=== PATIENT | female | born 1985 | race African-American/Black ===

== ENCOUNTER 2016-10-20 23:32 | Emergency (ER) | payer SELFPAY ==
--- NOTE | 2016-10-21 01:36 | ER Document Report ---
ED Medical Screen (RME) - General Chief Complaint: Headache Stated Complaint: HEADACHE,SHORT OF BREATH Time seen by provider: 01:31 Mode of Arrival: Ambulatory Information source: Patient Notes: 31-year-old female presents to ED for shortness of breath chest pain and headache that started 3 days ago. She has a history of diabetes high blood pressure and kidney disease. She states her livestock farm workers switched one of her medicines on October 07. She states that her heart rate feels like it's beating really fast all the time and she is short of breath with pressure on her chest since the medicines were changed. I have greeted and performed a rapid initial assessment of this patient. A comprehensive ED assessment and evaluation of the patient, analysis of test results and completion of medical decision making process will be conducted by an additional ED providers. TRAVEL OUTSIDE OF THE [place] IN LAST 30 DAYS: No - Related Data Allergies/Adverse Reactions: varSartan Adverse Reaction (Uncoded 07/08/16 19:54) Past Medical History - Past Medical History Cardiac Medical History: Reports: Hx Hypercholesterolemia, Hx Hypertension Endocrine Medical History: Reports: Hx Diabetes Mellitus Type 1, Hx Diabetes Mellitus Type 2 Renal/ Medical History: Denies: Hx Peritoneal Dialysis Past Surgical History: Reports: Hx Section - Immunizations Hx Diphtheria, Pertussis, Tetanus Vaccination: Yes Physical Exam - Vital signs Vitals: Temp Pulse Resp BP 98.1 F 104 H 22 H 186/81 H 10/20/16 23:38 10/20/16 23:38 10/20/16 23:38 10/20/16 23:38 Course - Vital Signs Vital signs: Temp Pulse Resp BP Pulse Ox 98.1 F 104 H 22 H 186/81 H 10/20/16 23:38 10/20/16 23:38 10/20/16 23:38 10/20/16 23:38
[2016-10-21 03:24] LABS: ABSOLUTE EOSINOPHILS # (AUTO) 0.2 10^3/uL (0.0-0.6); ABSOLUTE LYMPHOCYTES (AUTO) 3.8 10^3/uL (0.5-4.7); ABSOLUTE MONOCYTES (AUTO) 0.6 10^3/uL (0.1-1.4); BASOPHILS % (AUTO) 0.2 % (0-2); EOSINOPHILS % (AUTO) 1.5 % (0-6); HEMATOCRIT 28.7 % (36.0-47.0); HEMOGLOBIN 9.6 g/dL (12.0-15.5); HGB HCT DIFFERENCE 0.1; LYMPHOCYTES % (AUTO) 30.3 % (13-45); MEAN CORPUSCULAR HGB CONC 33.6 g/dL (32.0-36.0); MEAN CORPUSCULAR VOLUME 86 fl (80-97); MONOCYTES % (AUTO) 5.1 % (3-13); RED BLOOD COUNT 3.32 10^6/uL (3.72-5.28); RED CELL DISTRIBUTION WIDTH 12.7 % (11.5-14.0); SEGMENTED NEUTROPHILS % (AUTO) 62.9 % (42-78); WHITE BLOOD COUNT 12.6 10^3/uL (4.0-10.5)
[2016-10-21 03:32] LABS: ALANINE AMINOTRANSFERASE 20 U/L (9-52); ALBUMIN 2.7 g/dL (3.5-5.0); ALKALINE PHOSPHATASE 136 U/L (38-126); ANION GAP 8 (5-19); ASPARTATE AMINO TRANSFERASE 21 U/L (14-36); BILIRUBIN,TOTAL 0.2 mg/dL (0.2-1.3); BLOOD UREA NITROGEN 36 mg/dL (7-20); CALCIUM 8.7 mg/dL (8.4-10.2); CARBON DIOXIDE 24 mmol/L (22-30); CHLORIDE 109 mmol/L (98-107); CREATINE KINASE 365 U/L (30-135); CREATININE RESULT 1.84 mg/dL (0.52-1.25); GLUCOSE 162 mg/dL (75-110); SODIUM 141.2 mmol/L (137-145)
[2016-10-21 03:39] LABS: APPEARANCE,URINE SLIGHTLY-CLOUDY; BILIRUBIN,URINE NEGATIVE (NEGATIVE); GLUCOSE, URINE 50 mg/dL (NEGATIVE); KETONES,URINE NEGATIVE (NEGATIVE); LEUKOCYTE ESTERASE,URINE LARGE (NEGATIVE); NITRITE,URINE NEGATIVE (NEGATIVE); PROTEIN,URINE >=500 mg/dL (NEGATIVE); UROBILINOGEN,URINE NEGATIVE mg/dL (<2.0)
[2016-10-21 03:42] LABS: CREATINE KINASE MB 2.49 ng/mL (<4.55); TROPONIN I 0.023 ng/mL
--- NOTE | 2016-10-21 05:10 | ER Document Report ---
ED General - General Chief Complaint: Headache Stated Complaint: HEADACHE,SHORT OF BREATH Time seen by provider: 05:07 Mode of Arrival: Ambulatory Information source: Patient Notes: 31-year-old female presents to ED for shortness of breath chest discomfort and headache that started 3 days ago. She has a history of diabetes high blood pressure and kidney disease. 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 She states that her heart has felt like it was racing and she has been short of breath with some pressure in her chest since the medicine was changed. TRAVEL OUTSIDE OF THE [place] IN LAST 30 DAYS: No - HPI Onset: Other - Headache and shortness of breath for 3 days she has had the racing heart and chest pressure with shortness of breath since October 07 Onset/Duration: Intermittent, Better Quality of pain: Pressure Severity: Moderate - She states the pressure is gone at this time Pain Level: 0 Associated symptoms: Nonproductive cough, Headache, Shortness of breath Exacerbated by: Coughing Relieved by: Denies Similar symptoms previously: Yes Recently seen / treated by doctor: No - Related Data Allergies/Adverse Reactions: varSartan Adverse Reaction (Uncoded 07/08/16 19:54) Past Medical History - General Information source: Patient - Social History Smoking Status: Never Smoker Cigarette use (# per day): No Chew tobacco use (# tins/day): No Smoking Education Provided: No Frequency of alcohol use: None Drug Abuse: None Lives with: Family Family History: Reviewed & Not Pertinent Patient has suicidal ideation: No Patient has homicidal ideation: No - Past Medical History Cardiac Medical History: Reports: Hx Hypercholesterolemia, Hx Hypertension Pulmonary Medical History: Reports: None EENT Medical History: Reports: None Neurological Medical History: Reports: None Endocrine Medical History: Reports: Hx Diabetes Mellitus Type 2 Renal/ Medical History: Reports: Other - Renal disease Malignancy Medical History: Reports: None GI Medical History: Reports: None Musculoskeltal Medical History: Reports None Skin Medical History: Reports None Psychiatric Medical History: Reports: None Traumatic Medical History: Reports: None Infectious Medical History: Reports: None Past Surgical History: Reports: Hx Section - Immunizations Immunizations up to date: Yes Hx Diphtheria, Pertussis, Tetanus Vaccination: Yes Hx Pneumococcal Vaccination: 06/13/14 Review of Systems - Review of Systems Constitutional: No symptoms reported EENT: No symptoms reported Cardiovascular: Chest pain Respiratory: Short of breath Gastrointestinal: No symptoms reported Genitourinary: No symptoms reported Female Genitourinary: No symptoms reported Musculoskeletal: No symptoms reported Skin: No symptoms reported Hematologic/Lymphatic: No symptoms reported Neurological/Psychological: No symptoms reported -: Yes All other systems reviewed and negative Physical Exam - Vital signs Vitals: Temp Pulse Resp BP Pulse Ox 98.1 F 112 H 20 186/81 H 100 10/20/16 23:37 10/20/16 23:37 10/20/16 23:37 10/20/16 23:37 10/20/16 23:37 Interpretation: Hypertensive, Tachycardic - Heart rate is 90 after given her a warm blanket - General General appearance: Appears well, Alert - HEENT Head: Normocephalic, Atraumatic Eyes: Normal Pupils: PERRL - Respiratory Respiratory status: No respiratory distress Chest status: Nontender. No: Tender Breath sounds: Normal. No: Rales, Rhonchi, Stridor, Wheezing Chest palpation: Normal - Cardiovascular Rhythm: Regular Heart sounds: Normal auscultation Murmur: No - Abdominal Inspection: Normal Distension: No distension Bowel sounds: Normal Tenderness: Nontender Organomegaly: No organomegaly - Back Back: Normal, Nontender - Extremities General upper extremity: Normal inspection, Nontender, Normal color, Normal ROM , Normal temperature General lower extremity: Normal inspection, Nontender, Normal color, Normal ROM , Normal temperature, Normal weight bearing. No: Nancy's sign - Neurological Neuro grossly intact: Yes Cognition: Normal Orientation: AAOx4 Yale Coma Scale Eye Opening: Spontaneous Yale Coma Scale Verbal: Oriented Junior Coma Scale Motor: Obeys Commands Junior Coma Scale Total: 15 Speech: Normal Motor strength normal: LUE, RUE, LLE, RLE Sensory: Normal - Psychological Associated symptoms: Normal affect, Normal mood - Skin Skin Temperature: Warm Skin Moisture: Dry Skin Color: Normal Course - Re-evaluation Re-evalutation: 10/21/16 05:[address] Barragan concerning lab values and assessment. Lab values are not a lot different than the last time she was here. Patient states that her symptoms that she was having earlier have resolved she no longer has any headache, chest pain, or shortness of breath. Patient was instructed to follow- up with her drywall taper helper by telephone today to schedule a follow-up appointment. A copy of her labs were given to her for follow-up with her drywall taper helper. Patient has a UTI will be treated with Macrobid I dose given in the ED and prescription given. Patient instructed to follow-up with her primary doctor for a repeat urine in 7-10 days. - Vital Signs Vital signs: Temp Pulse Resp BP Pulse Ox 98.0 F 106 H 18 137/93 H 100 10/21/16 05:40 10/21/16 05:40 10/21/16 05:40 10/21/16 05:40 10/21/16 05:40 - Laboratory Result Diagrams: 10/21/16 03:03 10/21/16 03:03 Laboratory results interpreted by me: 10/21/16 10/21/16 10/21/16 03:03 03:03 03:24 WBC 12.6 H RBC 3.32 L Hgb 9.6 L Hct 28.7 L Chloride 109 H BUN 36 H Creatinine 1.84 H Est GFR ( Amer) 39 L Est GFR (Non-Af Amer) 32 L Glucose 162 H Alkaline Phosphatase 136 H Creatine Kinase 365 H Total Protein 6.0 L Albumin 2.7 L Urine Protein >=500 H Urine Glucose (UA) 50 H Ur Leukocyte Esterase LARGE H Urine Ascorbic Acid 40 H - Diagnostic Test Radiology reviewed: Image reviewed, Reports reviewed Discharge - Discharge Clinical Impression: UTI (urinary tract infection) Qualifiers: Urinary tract infection type: site unspecified Hematuria presence: without hematuria Qualified Code(s): N39.0 - Urinary tract infection, site not specified Headache Qualifiers: Headache type: unspecified Headache chronicity pattern: unspecified pattern Intractability: not intractable Qualified Code(s): R51 - Headache Condition: Stable Disposition: HOME, SELF-CARE Additional Instructions: CHEST PAIN OF UNCLEAR CAUSE: The exact cause of your chest pain isn't clear. Fortunately, there is no evidence of a dangerous medical condition. Further testing may be required to find the source of the pain. Most often, we find that this pain is coming from the chest wall -- the muscles or rib joints in the chest. But chest pain can come from the lung and lung lining, the esophagus, the heart valves or heart lining, and even the stomach or gallbladder. Rest. Eat lightly until the pain is gone. We may prescribe medicine for pain and inflammation. You should call the physician immediately if the pain radiates to the shoulder, jaw or arms; if you start to run a fever or develop a cough; or if you develop shortness of breath, or other new or alarming symptoms. Headache The physician does not feel that the headache you are experiencing has a serious underlying cause. Most headaches are due to emotional stress, with resultant muscle tension (tension headache). Occasionally, headaches are secondary to changes in the blood vessels of the scalp (vascular headache and migraine headache). Sometimes, a headache is the first symptom of another developing illness, such as a viral infection. You have no evidence of stroke, bleeding, meningitis, or other serious cause of your headache. The treatment of headaches varies with the severity and cause of the pain. Not all headaches need pain shots. In fact, there is evidence that using narcotics for headaches may make them worse in the long run. The physician will determine the therapy that's in your best interest. If you develop a fever, if the headache is different from any you've previously experienced, or if the headache progressively worsens, then call your physician at once or go to the emergency room. URINARY TRACT INFECTION: Your evaluation indicates that you have a urinary tract infection. This is due to germs growing in the bladder. This is a common problem. This infection usually responds quickly to antibiotics. Your antibiotic should be taken exactly as prescribed. Drink plenty of fluids -- three to four quarts a day. Occasionally, a bladder anesthetic will be prescribed to help stop the feeling of urgency until the antibiotic has a chance to clear the infection. This may cause your urine to be dark orange. Certain urine infections require a culture. If the doctor obtained a culture, the results will be back in two days. You should call to see if a change in treatment is needed. A repeat urinalysis after you finish treatment is often recommended. The physician will let you know if further testing is required. Call the doctor if you develop fever, chills, flank pain, inability to urinate, or blood in the urine. NITROFURANTOIN (MACRODANTIN, MACROBID): You have received a prescription for nitrofurantoin (Macrodantin). This antibiotic is used for urinary tract infections. Women who are or nursing should notify the physician before taking this medicine. If you have ever had a problem caused by this medication in the past, be sure the physician is aware of it. Common side effects of this medicine include nausea, vomiting, or decreased appetite. Notify your physician if these side effects become severe. Immediately stop this medicine and call the physician if you develop cough , shortness of breath, chest pain, weakness, jaundice (yellow color of the skin and whites of the eyes), or a skin rash. Acetaminophen Acetaminophen may be taken for pain relief or fever control. It's much safer than aspirin, offering a wider range of "safe" dosages. It is safe during . Some brand names are Tylenol, Panadol, Datril, Anacin 3, Tempra, and Liquiprin. Acetaminophen can be repeated every four hours. The following are maximum recommended dosages: WEIGHT Dose Drops Elixir Chewable( 80mg) (LBS.) drprs=droppers tsp=teaspoon 6 40 mg .4 ml (1/2) 6-11 80 mg .8 ml (full) 1/2 tsp 1 tab 12-16 120 mg 1 1/2 drprs 3/4 tsp 1 1/2 tabs 17-23 160 mg 2 drprs 1 tsp 2 tabs 24-30 240 mg 3 drprs 1 1/2 tsp 3 tabs 30-35 320 mg 2 tsp 4 tabs 36-41 360 mg 2 1/4 tsp 4 1 /2 tabs 42-47 400 mg 2 1/2 tsp 5 tabs 48-53 480 mg 3 tsp 6 tabs 54-59 520 mg 3 1/4 tsp 6 1 /2 tabs 60-64 560 mg 3 1/2 tsp 7 tabs 65-70 600 mg 3 3/4 tsp 7 1 /2 tabs 71-76 640 mg 4 tsp 8 tabs 77-82 720 mg 4 1/2 tsp 9 tabs 83-88 800 mg 5 tsp 10 tabs >89 pounds or adults 650 mg to 900 mg Acetaminophen can be repeated every four hours. Maximum daily dose not to exceed 4000 mg. These maximum recommended dosages are slightly higher than the dosages written on the product container, but these dosages are very safe and well below the toxic dosage for acetaminophen. Please call your drywall taper helper today and schedule a follow-up appointment. You will be treated with Macrobid for your UTI. Please follow-up with your primary doctor for a repeat urine in 7 days. FOLLOW-UP CARE: If you have been referred to a physician for follow-up care, call the physician s office for an appointment as you were instructed or within the next two days. If you experience worsening or a significant change in your symptoms, notify the physician immediately or return to the Emergency Department at any time for re-evaluation. Prescriptions: Nitrofurantoin/Nitrofuran Mac [Macrobid 100 mg Capsule] 1 tab PO BID #14 capsule Forms: Elevated Blood Pressure Referrals: YAMILE LAURA PA-C [Primary Care Provider] - Follow up as needed
[2016-10-21] MEDS ORDERED: NITROFURANTOIN MONOHYD/M-CRYST 100 MG CAPSULE PO ONE (05:56)
[2016-10-21 07:11] VITALS: BP 157/88
--- NOTE | 2016-10-21 08:07 | EKG REPORT ---
SEVERITY:- NORMAL ECG - SINUS RHYTHM : Confirmed by: Pro Barclay MD 21-Oct-2016 08:07:07
== END 2016-10-21 06:17 | disposition home or self-care (01) ==
LOC: ER 23:32
DX: N39.0 Urinary tract infection, site not specified (principal); R51 Headache; R06.02 Shortness of breath; E11.9 Type 2 diabetes mellitus without complications; I10 Essential (primary) hypertension
CPT/HCPCS: 93005; 99285; 36415; 87086; 82553; 82550; 84703; 85025; 87088; 80053; 81001; 84484; 71020; 93010; J8499

== ENCOUNTER 2016-12-30 11:47 | Inpatient (IN) | payer MEDICAID ==
--- NOTE | 2016-12-30 12:17 | ER Document Report ---
ED Medical Screen (RME) - General Chief Complaint: Leg Swelling Stated Complaint: WEAKNESS/DIZZINESS Notes: Patient is here saying that she is having swelling of both legs starting yesterday. She has a history of similar problems in the past. Says that she is stage III renal failure. 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 Patient awakened this morning and felt lightheaded and dizzy and felt as if her heart was racing. Denies any chest pain. Feels short of breath and some difficulty breathing, however. PMH: Hypertension, IDDM, CRF TRAVEL OUTSIDE OF THE [place] IN LAST 30 DAYS: No - Related Data Allergies/Adverse Reactions: varSartan Adverse Reaction (Uncoded 12/30/16 11:49) Past Medical History - Past Medical History Cardiac Medical History: Reports: Hx Hypercholesterolemia, Hx Hypertension Endocrine Medical History: Reports: Hx Diabetes Mellitus Type 1, Hx Diabetes Mellitus Type 2 Renal/ Medical History: Denies: Hx Peritoneal Dialysis Past Surgical History: Reports: Hx Section - Immunizations Immunizations up to date: Yes Hx Diphtheria, Pertussis, Tetanus Vaccination: Yes Physical Exam - Vital signs Vitals: Temp Pulse Resp BP Pulse Ox 98.2 F 126 H 20 158/79 H 99 12/30/16 11:52 12/30/16 11:52 12/30/16 11:52 12/30/16 11:52 12/30/16 11:52 Course - Vital Signs Vital signs: Temp Pulse Resp BP Pulse Ox 98.2 F 126 H 20 158/79 H 99 12/30/16 11:52 12/30/16 11:52 12/30/16 11:52 12/30/16 11:52 12/30/16 11:52
--- NOTE | 2016-12-30 12:50 | ER Document Report ---
ED General - General Chief Complaint: Leg Swelling Stated Complaint: WEAKNESS/DIZZINESS Mode of Arrival: Ambulatory Information source: Patient Notes: 31-year-old female stage III chronic kidney disease presents with complaints of sob, bilateral foot swelling. Pt admits symptoms worsened since yesterday, pt on lasix, noted to have worsening renal function per manager resort. TRAVEL OUTSIDE OF THE [place] IN LAST 30 DAYS: No - HPI Onset: Yesterday Onset/Duration: Persistent, Worse Quality of pain: No pain Severity: Moderate Pain Level: Denies Associated symptoms: Leg swelling, Shortness of breath Exacerbated by: Supine Relieved by: Denies Similar symptoms previously: Yes Recently seen / treated by doctor: Yes - Related Data Allergies/Adverse Reactions: varSartan Adverse Reaction (Uncoded 12/30/16 11:49) Past Medical History - Social History Smoking Status: Never Smoker Cigarette use (# per day): No Chew tobacco use (# tins/day): No Smoking Education Provided: No Family History: Reviewed & Not Pertinent Patient has suicidal ideation: No Patient has homicidal ideation: No - Past Medical History Cardiac Medical History: Reports: Hx Hypercholesterolemia, Hx Hypertension Endocrine Medical History: Reports: Hx Diabetes Mellitus Type 1, Hx Diabetes Mellitus Type 2 Renal/ Medical History: Denies: Hx Peritoneal Dialysis Past Surgical History: Reports: Hx Section - Immunizations Immunizations up to date: Yes Hx Diphtheria, Pertussis, Tetanus Vaccination: Yes Hx Pneumococcal Vaccination: 06/13/14 Review of Systems - Review of Systems Notes: REVIEW OF SYSTEMS: CONSTITUTIONAL : Denies fever, chills, or sweats. Denies recent illness. EENT: Denies eye, ear, throat, or mouth pain or symptoms. Denies nasal or sinus congestion or discharge. Denies throat, tongue, or mouth swelling or difficulty swallowing. CARDIOVASCULAR: Denies chest pain. Denies palpitations or racing or irregular heart beat. Denies ankle edema. RESPIRATORY: admits to sob GASTROINTESTINAL: Denies abdominal pain or distention. Denies nausea, vomiting , or diarrhea. Denies blood in vomitus, stools, or per rectum. Denies black, tarry stools. Denies constipation. GENITOURINARY: Denies difficulty urinating, painful urination, burning, frequency, blood in urine, or discharge. FEMALE GENITOURINARY: Denies vaginal bleeding, heavy or abnormal periods, irregular periods. Denies vaginal discharge or odor. MUSCULOSKELETAL: admits to lwoer extremity sob SKIN: Denies rash, lesions or sores. HEMATOLOGIC : Denies easy bruising or bleeding. LYMPHATIC: Denies swollen, enlarged glands. NEUROLOGICAL: Denies confusion or altered mental status. Denies passing out or loss of consciousness. Denies dizziness or lightheadedness. Denies headache. Denies weakness or paralysis or loss of use of either side. Denies problems with gait or speech. Denies sensory loss, numbness, or tingling. Denies seizures. PSYCHIATRIC: Denies anxiety or stress. Denies depression, suicidal ideation, or homicidal ideation. ALL OTHER SYSTEMS REVIEWED AND NEGATIVE. Dictation was performed using [employer] voice recognition software PHYSICAL EXAMINATION: GENERAL: Well-appearing, well-nourished and in no acute distress. HEAD: Atraumatic, normocephalic. EYES: Pupils equal round and reactive to light, extraocular movements intact, conjunctiva are normal. ENT: Nares patent, oropharynx clear without exudates. Moist mucous membranes. NECK: Normal range of motion, supple without lymphadenopathy LUNGS: rhonchi at bases HEART: tachycardic ABDOMEN: Soft, nontender, nondistended abdomen. No guarding, no rebound. No masses appreciated. Female : deferred Musculoskeletal: peripheral edema NEUROLOGICAL: Cranial nerves grossly intact. Normal speech, normal gait. Normal sensory, motor exams PSYCH: Normal mood, normal affect. SKIN: Warm, Dry, normal turgor, no rashes or lesions noted. Physical Exam - Vital signs Vitals: Temp Pulse Resp BP Pulse Ox 98.2 F 126 H 20 158/79 H 99 12/30/16 11:52 12/30/16 11:52 12/30/16 11:52 12/30/16 11:52 12/30/16 11:52 Course - Re-evaluation Re-evalutation: 12/30/16 12:53 pt has probably chf exacerbation with electrolyte imbalance. 12/30/16 15:05 CT noted no significant abnormality, lab work noted worsening renal function, patient will be admitted to hospitalist service for her tachycardia and shortness of breath - Vital Signs Vital signs: Temp Pulse Resp BP Pulse Ox 98.8 F 126 H 18 143/85 H 98 12/30/16 13:01 12/30/16 11:52 12/30/16 13:01 12/30/16 13:01 12/30/16 13:01 - Laboratory Result Diagrams: 12/30/16 12:45 12/30/16 12:45 Laboratory results interpreted by me: 12/30/16 12/30/16 12/30/16 12:45 12:45 12:45 WBC 14.3 H RBC 3.13 L Hgb 9.0 L Hct 26.6 L Absolute Neutrophils 10.5 H Chloride 109 H BUN 24 H Creatinine 2.50 H Est GFR ( Amer) 27 L Est GFR (Non-Af Amer) 22 L Alkaline Phosphatase 134 H Creatine Kinase 554 H NT-Pro-B Natriuret Pep 411 H Total Protein 5.2 L Albumin 2.5 L - Diagnostic Test Radiology reviewed: Image reviewed, Reports reviewed Discharge - Discharge Clinical Impression: Tachycardia, Shortness of breath Hypertension Qualifiers: Hypertension type: essential hypertension Qualified Code(s): I10 - Essential ( primary) hypertension Condition: Stable Disposition: ADMITTED OBSERVATION Admitting Provider: Hospitalist Unit Admitted: Telemetry
[2016-12-30 12:58] LABS: ABSOLUTE EOSINOPHILS # (AUTO) 0.1 10^3/uL (0.0-0.6); ABSOLUTE MONOCYTES (AUTO) 0.6 10^3/uL (0.1-1.4); ABSOLUTE NEUT (AUTO) 10.5 10^3/uL (1.7-8.2); BASOPHILS % (AUTO) 0.3 % (0-2); HEMATOCRIT 26.6 % (36.0-47.0); HGB HCT DIFFERENCE 0.4; LYMPHOCYTES % (AUTO) 20.8 % (13-45); MEAN CORPUSCULAR HEMOGLOBIN 28.8 pg (27.0-33.4); MEAN CORPUSCULAR VOLUME 85 fl (80-97); MONOCYTES % (AUTO) 4.3 % (3-13); RED BLOOD COUNT 3.13 10^6/uL (3.72-5.28); RED CELL DISTRIBUTION WIDTH 12.8 % (11.5-14.0); SEGMENTED NEUTROPHILS % (AUTO) 73.6 % (42-78); WHITE BLOOD COUNT 14.3 10^3/uL (4.0-10.5)
[2016-12-30 13:16] LABS: ALANINE AMINOTRANSFERASE 28 U/L (9-52); ALBUMIN 2.5 g/dL (3.5-5.0); ALKALINE PHOSPHATASE 134 U/L (38-126); ANION GAP 8 (5-19); ASPARTATE AMINO TRANSFERASE 28 U/L (14-36); BILIRUBIN,TOTAL 0.2 mg/dL (0.2-1.3); BLOOD UREA NITROGEN 24 mg/dL (7-20); CALCIUM 8.5 mg/dL (8.4-10.2); CARBON DIOXIDE 23 mmol/L (22-30); CHLORIDE 109 mmol/L (98-107); CREATINE KINASE 554 U/L (30-135); GLUCOSE 103 mg/dL (75-110); SODIUM 140.1 mmol/L (137-145); TOTAL PROTEIN 5.2 g/dL (6.3-8.2)
[2016-12-30 13:27] LABS: CREATINE KINASE MB 3.87 ng/mL (<4.55); TROPONIN I 0.013 ng/mL
[2016-12-30] MEDS ORDERED: IPRATROPIUM/ALBUTEROL 0.5-2.5 MG/3 ML AMPUL NEB PRN (16:51)
[2016-12-30] MEDS ORDERED: ACETAMINOPHEN 325 MG TABLET PO PRN (16:57)
[2016-12-30] MEDS ORDERED: LABETALOL HCL INJ 20 MG/4 ML DISP.SYRIN IV PRN (17:05)
[2016-12-30] MEDS ORDERED: GLUCAGON,HUMAN RECOMB 1 MG INJ IM PRN (17:45)
[2016-12-30] MEDS ORDERED: DEXTROSE 40% GEL 15 GM TUBE PO PRN ×2 (17:45)
[2016-12-30] MEDS ORDERED: DEXTROSE 50%-WATER 25 GM/50 ML DISP.SYRIN IV PRN ×2 (17:45)
[2016-12-30] MEDS ORDERED: GABAPENTIN 300 MG CAPSULE PO PRN (18:14)
[2016-12-30] MEDS ORDERED: ENOXAPARIN SODIUM INJ 40 MG/0.4 ML DISP.SYRIN SUBCUT ONE (18:30)
[2016-12-30 19:06] LABS: APPEARANCE,URINE CLOUDY; BILIRUBIN,URINE NEGATIVE (NEGATIVE); GLUCOSE, URINE >=500 mg/dL (NEGATIVE); KETONES,URINE NEGATIVE (NEGATIVE); LEUKOCYTE ESTERASE,URINE MODERATE (NEGATIVE); NITRITE,URINE NEGATIVE (NEGATIVE); PROTEIN,URINE >=500 mg/dL (NEGATIVE); URINE SPECIFIC GRAVITY 1.009; UROBILINOGEN,URINE NEGATIVE mg/dL (<2.0)
[2016-12-30 19:54] LABS: URINE CREATININE 80.8 mg/dL (16-327)
--- NOTE | 2016-12-30 20:06 | EKG REPORT ---
SEVERITY:- BORDERLINE ECG - SINUS TACHYCARDIA INFERIOR Q WAVES, PROBABLY NORMAL VARIATION BORDERLINE T ABNORMALITIES, DIFFUSE LEADS : Confirmed by: Maritza Miller MD 30-Dec-2016 20:06:06
[2016-12-30] MEDS: BUPROPION HCL 100 MG TABLET PO SCH (22:11)
[2016-12-30] MEDS: FUROSEMIDE INJ/PF 20 MG/2 ML SDV IV SCH (22:11)
[2016-12-30] MEDS: INSULIN REG, HUMAN 100 UNIT/ML 3 ML VIAL (PYX) SUBCUT PRN (22:11)
[2016-12-31 04:25] LABS: ABSOLUTE BASOPHILS # (AUTO) 0.1 10^3/uL (0.0-0.2); ABSOLUTE EOSINOPHILS # (AUTO) 0.2 10^3/uL (0.0-0.6); ABSOLUTE LYMPHOCYTES (AUTO) 3.8 10^3/uL (0.5-4.7); ABSOLUTE MONOCYTES (AUTO) 0.6 10^3/uL (0.1-1.4); ABSOLUTE NEUT (AUTO) 8.7 10^3/uL (1.7-8.2); BASOPHILS % (AUTO) 0.4 % (0-2); EOSINOPHILS % (AUTO) 1.2 % (0-6); HEMATOCRIT 24.9 % (36.0-47.0); HEMOGLOBIN 8.4 g/dL (12.0-15.5); HGB HCT DIFFERENCE 0.3; LYMPHOCYTES % (AUTO) 28.2 % (13-45); MEAN CORPUSCULAR HEMOGLOBIN 28.7 pg (27.0-33.4); MEAN CORPUSCULAR HGB CONC 33.9 g/dL (32.0-36.0); MEAN CORPUSCULAR VOLUME 85 fl (80-97); MONOCYTES % (AUTO) 4.7 % (3-13); RED BLOOD COUNT 2.94 10^6/uL (3.72-5.28); RED CELL DISTRIBUTION WIDTH 12.8 % (11.5-14.0); SEGMENTED NEUTROPHILS % (AUTO) 65.5 % (42-78); WHITE BLOOD COUNT 13.3 10^3/uL (4.0-10.5)
[2016-12-31 04:42] LABS: ALANINE AMINOTRANSFERASE 23 U/L (9-52); ALBUMIN 2.2 g/dL (3.5-5.0); ALKALINE PHOSPHATASE 119 U/L (38-126); ANION GAP 5 (5-19); ASPARTATE AMINO TRANSFERASE 24 U/L (14-36); BILIRUBIN,TOTAL 0.3 mg/dL (0.2-1.3); BLOOD UREA NITROGEN 25 mg/dL (7-20); CALCIUM 8.3 mg/dL (8.4-10.2); CARBON DIOXIDE 25 mmol/L (22-30); CHLORIDE 111 mmol/L (98-107); CREATINE KINASE 374 U/L (30-135); CREATININE RESULT 2.45 mg/dL (0.52-1.25); GLUCOSE 184 mg/dL (75-110); MAGNESIUM 2.2 mg/dL (1.6-2.3); POTASSIUM 4.1 mmol/L (3.6-5.0); SODIUM 140.9 mmol/L (137-145); TOTAL PROTEIN 4.7 g/dL (6.3-8.2)
[2016-12-31 04:56] LABS: FREE T3 4.94 pg/mL (2.77-5.27)
[2016-12-31 05:09] LABS: THYROID STIMULATING HORMONE 3.45 uIU/mL (0.47-4.68)
[2016-12-31] MEDS: BUPROPION HCL 100 MG TABLET PO SCH ×3 (06:20→20:05)
--- NOTE | 2016-12-31 07:46 | PDOC H&P ---
History of Present Illness Admission Date/PCP: 12/30/16 16:52 YAMILE LAURA PA-C, with [facility] Patient complains of: Swelling and shortness of breath History of Present Illness: KAYLIE RODRIGUEZ is a 31 year old -Ch[place]an female with a past medical history significant for CK D stage III with a baseline creatinine around 1.8, dyslipidemia, hypertension who presents to the service with complaints of shortness of breath and lower extremity swelling. According to the patient her symptoms began 2 days ago when she started feeling short of breath. She noticed that her lower extremities seems larger than usual. In addition to this she noticed that her abdomen has also gotten larger. She says she usually has a bit of a tummy but never has looked as though she could be . She states she follows with a sales office administrator by the name of mack Mishra at [facility] and has been on several medications since establishing care. She doesn't feel that the medications are completely working. The patient is also a known diabetic. Her says that her blood sugars have been very uncontrolled as high as the upper 300s. Her last hemoglobin A1c was 10/07/2016 and was noted to be 7.5 according to her report. The patient also admits to having uncontrolled hypertension, But reports taking her medicine. She denies any orthopnea, PND, fevers, polyuria or polydipsia. In the emergency room the patient underwent a noncontrast CT of the chest which was negative. So underwent VQ scan which was negative. She did not receive any antihypertensives as her blood pressure came down on its own. Really it was 180/95 with a heart rate of 130. Repeat showed a blood pressure of 143/95 and a heart rate of 106. Her white blood cell count is noted to be elevated at 14.3 with a creatinine of 2.4. Again her baseline is around 1.8. She was also noted to have an elevated CK and alkaline phosphatase. VBG was pending. At the bedside the patient was feeling a little bit better by the time I saw her. She complains of weakness and generalized feeling of being tired and she notes that she occasionally has chills and was supposed to have her thyroid checked. Past Medical History Cardiac Medical History: Reports: Hyperlipidema, Hypertension, Heart Murmur Endocrine Medical History: Reports: Diabetes Mellitus Type 1 - Complicated by peripheral neuropathy Renal/ Medical History: Reports: Chronic Kidney Disease - Stage III Psychiatric Medical History: Reports: Depression Past Surgical History Past Surgical History: Reports: Section Social History Information Source: Patient Smoking Status: Never Smoker Hx Recreational Drug Use: No Hx Prescription Drug Abuse: No Family History Family History: DM, Hypertension Parental Family History Reviewed: Yes Children Family History Reviewed: Yes Sibling(s) Family History Reviewed.: Yes Medication/Allergy Home Medications: Amlodipine/Valsartan [Amlodipine-Valsartan 10-320 mg] 1 tab PO DAILY 12/30/16 Atorvastatin Calcium [Lipitor 20 mg Tablet] 20 mg PO DAILY 12/30/16 Bupropion HCl [Wellbutrin Xl] 300 mg PO DAILY 12/30/16 Furosemide [Lasix] 60 mg PO DAILY 12/30/16 Gabapentin [Neurontin 300 mg Capsule] 300 mg PO HSP PRN 12/30/16 Hydralazine HCl [Apresoline 50 mg Tablet] 25 mg PO Q12 12/30/16 Insulin Aspart [Novolog Insulin (Aspart) 100 unit/mL] 0 units SQ AC PRN Insulin Glargine,Hum.rec.anlog [Lantus Insulin 100 Unit/1 ml 10 ml] 20 units SQ QAM 12/30/16 Terazosin HCl [Hytrin] 5 mg PO DAILY 12/30/16 Tramadol HCl [Ultram 50 mg Tablet] 50 mg PO DAILYP PRN 12/30/16 Allergies/Adverse Reactions: varSartan Adverse Reaction (Uncoded 12/30/16 11:49) Review of Systems Review of Systems: Review of systems is pertinent as already listed in the history of present illness in addition to this the patient admits to weight gain periodic dizziness and lightheadedness sweats generalized weakness cold intolerance she denies fevers chills nausea vomiting diarrhea constipation arthritic type pains chest pain abdominal pain weight loss polyuria polydipsia Physical Exam Vital Signs: Temp Pulse Resp BP Pulse Ox 98.1 F 126 H 17 162/101 H 99 12/30/16 16:40 12/30/16 11:52 12/30/16 17:01 12/30/16 17:00 12/30/16 17:01 PHYSICAL EXAM: GENERAL: This is a well-developed well-nourished -[place] female resting in no acute distress, but appearing tired. HEENT: Normocephalic atraumatic. Trachea is midline. Sclerae anicteric. No lymphadenopathy. Moist mucous membranes HEART: Regular rate and rhythm. 2/6 systolic murmurs. No rubs or gallops. LUNGS: Clear to auscultation bilaterally with equal rise and fall of the chest. ABDOMEN: Soft, nontender, moderately distended with normoactive bowel sounds EXTREMITIES: No clubbing cyanosis. 2+ pitting edema extending from the feet following up through the knees. 1+ peripheral pulses. Strength is 5 out of 5 NEURO: Awake, alert, oriented x3. Cranial nerves II through XII grossly intact. PSYCH: Normal affect. Results Impressions: Chest X-Ray 12/30/16 12:14 IMPRESSION: NO ACUTE RADIOGRAPHIC FINDING IN THE CHEST. Chest CT 12/30/16 13:44 IMPRESSION: NO SIGNIFICANT FINDING ON NON-CONTRASTED CHEST CT. Lung Scan-VQ NM 12/30/16 15:04 IMPRESSION: NORMAL VENTILATION-PERFUSION LUNG SCAN. NEGATIVE FOR PULMONARY EMBOLI. Assessment & Plan - Diagnosis (1) Acute on chronic renal failure Plan: Patient with acute on chronic renal failure she follows with outpatient nephrology. We will need to be cautious with diuresis and her. For now I'm going to hold her valsartan and and her HCTZ. BUNs only slightly elevated. I suspect that her new creatinine is a reflection of mild volume depletion at best and more so intrinsic renal disease (2) Hypertensive emergency without congestive heart failure Plan: Patient is written for when necessary labetalol IV. We will continue her amlodipine 10. I'm holding her valsartan and secondary to acute renal failure. If her blood pressure is not under better control we will need to add hydralazine by mouth and isosorbide. We'll continue to monitor (3) Dyslipidemia Plan: Continue atorvastatin (4) Depression Plan: Continue bupropion. Check TSH (5) Leukocytosis Plan: It is unclear to me why the patient has an elevated white count her CT and chest x-ray were each negative. She denies any dysuria. However we'll go ahead and check urinalysis. This could just be a stress reaction however she does have an elevated heart rate she is afebrile. For now I will not start any antibiotics until I have a source or she spikes a fever. We'll defer blood cultures the patient does not appear toxic whatsoever. (6) Shortness of breath Plan: I think the patient's shortness of breath is a reflection of her volume overload secondary to renal failure. Hopefully we can help her diurese we will need to be cautious with this considering her renal function. She likely is also mildly intravascularly volume depleted - Time Time Spent: Greater than 70 Minutes - Inpatient Certification Medical Necessity: Need Close Monitoring Due to Risk of Patient Decompensation
[2016-12-31] MEDS: ENOXAPARIN SODIUM INJ 40 MG/0.4 ML DISP.SYRIN SUBCUT SCH (08:32)
[2016-12-31] MEDS: INSULIN REG, HUMAN 100 UNIT/ML 3 ML VIAL (PYX) SUBCUT PRN ×4 (08:32→20:14)
[2016-12-31] MEDS: TRAMADOL HCL 50 MG TABLET PO PRN ×2 (08:35→20:05)
[2016-12-31] MEDS: INSULIN GLARGINE,HUM.REC.ANLOG 300 UNIT/3 ML INSULN.PEN SUBCUT SCH (09:51)
[2016-12-31] MEDS: AMLODIPINE BESYLATE 10 MG TABLET PO SCH (09:52)
[2016-12-31] MEDS: ATORVASTATIN CALCIUM 20 MG TABLET PO SCH (09:53)
[2016-12-31] MEDS: DOXAZOSIN MESYLATE 4 MG TABLET PO SCH (09:53)
[2016-12-31] MEDS: FUROSEMIDE INJ/PF 20 MG/2 ML SDV IV SCH ×2 (09:54→20:04)
[2016-12-31] MEDS ORDERED: (PENDING PHARMACY ID) (Terazosin Hcl [Hytrin] 5 MG) PO SCH (10:00)
[2016-12-31] MEDS ORDERED: BUPROPION HCL 100 MG TABLET PO SCH (10:00)
--- NOTE | 2016-12-31 13:18 | XCELERA REPORT ---
[address] [address] Transthoracic Echocardiogram Report Name: KAYLIE RODRIGUEZ Age: 31 yrs Gender: Female : 1985 Patient Status: Inpatient Patient Location: 5\S\534\S\A Study Date: 12/31/2016 10:47 AM Height: 66 in Weight: 182 lb BSA: 1.9 m2 Procedure: A complete two-dimensional transthoracic echocardiogram was performed (2D, M-mode, spectral and color flow Doppler). The study was technically difficult with many images being suboptimal in quality. Reason For Study: swelling and murmur Ordering Physician: KAMILLE NGUYEN Performed By: Fiordaliza Bose Interpretation Summary The study was technically difficult with many images being suboptimal in quality. The left ventricular ejection fraction is normal. There is mild concentric left ventricular hypertrophy. Doppler measurements suggest pseudonormalized left ventricular relaxation, which is associated with grade II/IV or mild to moderate diastolic dysfunction The left ventricle is grossly normal size. Wall motion cannot be accurately commented on, but no definite regional wall motion abnormalities noted. The right ventricular systolic function is normal. The left atrium is mildly dilated. The right atrium is normal in size There is a trace amount of mitral regurgitation There is no mitral valve stenosis. No aortic regurgitation is present. There is no aortic valve stenosis There is a trace or physiologic amount of tricuspid regurgitation Tricuspid regurgitation jet envelope not well defined to measure RV systolic pressure accurately. The pulmonic valve is not well visualized. The aortic root is not well visualized but is probably normal size. The inferior vena cava was not well visualized Minimal pericardial effusion. MMode/2D Measurements \T\ Calculations RVDd: 2.6 cm LVIDd: 4.4 cm FS: 33.5 % Ao root diam: 2.8 cm IVSd: 1.2 cm LVIDs: 2.9 cm EDV(Teich): 88.9 ml LVPWd: 1.1 cm ESV(Teich): 33.3 ml Ao root area: 6.0 cm2 EF(Teich): 62.5 % LA dimension: 3.7 cm Doppler Measurements \T\ Calculations MV E max denise: MV P1/2t max denise: Ao V2 max: LV V1 max P.9 cm/sec 106.9 cm/sec 182.4 cm/sec 6.8 mmHg MV A max denise: MV P1/2t: 77.0 msec Ao max PG: LV V1 max: 103.1 cm/sec 13.3 mmHg 130.5 cm/sec MV E/A: 1.0 MVA(P1/2t): 2.9 cm2 MV dec slope: 406.9 cm/sec2 PA V2 max: 121.7 cm/sec PA max P.9 mmHg Left Ventricle The left ventricle is grossly normal size. There is mild concentric left ventricular hypertrophy. The left ventricular ejection fraction is normal. Doppler measurements suggest pseudonormalized left ventricular relaxation, which is associated with grade II/IV or mild to moderate diastolic dysfunction. Wall motion cannot be accurately commented on, but no definite regional wall motion abnormalities noted. Right Ventricle The right ventricle is grossly normal size. There is normal right ventricular wall thickness. The right ventricular systolic function is normal. Atria The right atrium is normal in size. The left atrium is mildly dilated. Interarterial septum not well visualized and not well dopplered. Cannot comment on ASD/PFO presence. Mitral Valve The mitral valve leaflets are sclerotic, but show no functional abnormalities. There is no mitral valve stenosis. There is a trace amount of mitral regurgitation. Aortic Valve The aortic valve is grossly normal. There is no aortic valve stenosis. No aortic regurgitation is present. Tricuspid Valve The tricuspid valve is not well visualized secondary to technical limitations. There is no tricuspid stenosis. There is a trace or physiologic amount of tricuspid regurgitation. Tricuspid regurgitation jet envelope not well defined to measure RV systolic pressure accurately. Pulmonic Valve The pulmonic valve is not well visualized. Great Vessels The aortic root is not well visualized but is probably normal size. The inferior vena cava was not well visualized. Effusions Minimal pericardial effusion. : KAMILLE NGUYEN > Denice Decker
--- NOTE | 2016-12-31 16:37 | PDOC PROGRESS REPORT ---
Subjective Progress Note for:: 12/31/16 Subjective:: This is a follow-up visit for acute renal failure. Patient had no acute events overnight. She does however expressed concerns about her blood sugars and elevated blood pressures. I have spoken with the patient and her mother about each of these issues. Of also just desires to be transferred out to [facility]. At this point the patient wishes to remain here. Physical Exam Vital Signs: Temp Pulse Resp BP Pulse Ox 97.9 F 101 H 16 183/112 H 100 12/31/16 11:40 12/31/16 14:00 12/31/16 07:47 12/31/16 11:40 12/31/16 11:40 Intake & Output 12/30/16 12/31/16 01/01/17 06:59 06:59 06:59 Intake Total 345 700 Output Total 336 Balance 9 700 Weight 82.3 kg PHYSICAL EXAM: GENERAL: This is a well-developed well-nourished -[place]aur[place] female resting in no acute distress. HEART: Regular rate and rhythm. 2/6 murmurs. No rubs or gallops. LUNGS: Clear to auscultation bilaterally with equal rise and fall of the chest. ABDOMEN: Soft, nontender, slightly less distended with normoactive bowel sounds EXTREMITIES: No clubbing cyanosis. Down to 1+ edema. 1+ peripheral pulses. NEURO: Awake, alert, oriented x-3. Cranial nerves II through XII grossly intact. PSYCH: Normal affect. Results Laboratory Results: 12/31/16 04:15 12/31/16 04:15 12/30/16 12/31/16 12/31/16 18:26 04:15 04:15 WBC 13.3 H RBC 2.94 L Hgb 8.4 L Hct 24.9 L MCV 85 MCH 28.7 MCHC 33.9 RDW 12.8 Plt Count 265 Seg Neutrophils % 65.5 Lymphocytes % 28.2 Monocytes % 4.7 Eosinophils % 1.2 Basophils % 0.4 Absolute Neutrophils 8.7 H Absolute Lymphocytes 3.8 Absolute Monocytes 0.6 Absolute Eosinophils 0.2 Absolute Basophils 0.1 Sodium 140.9 Potassium 4.1 Chloride 111 H Carbon Dioxide 25 Anion Gap 5 BUN 25 H Creatinine 2.45 H Est GFR ( Amer) 28 L Est GFR (Non-Af Amer) 23 L Glucose 184 H Calcium 8.3 L Magnesium 2.2 Total Bilirubin 0.3 AST 24 ALT 23 Alkaline Phosphatase 119 Total Protein 4.7 L Albumin 2.2 L TSH Free T4 Free T3 pg/mL Urine Color YELLOW Urine Appearance CLOUDY Urine pH 5.0 Ur Specific [place] 1.009 Urine Protein >=500 H Urine Glucose (UA) >=500 H Urine Ketones NEGATIVE Urine Blood NEGATIVE Urine Nitrite NEGATIVE Ur Leukocyte Esterase MODERATE H Urine WBC (Auto) 58 Urine RBC (Auto) 46 12/31/16 04:15 WBC RBC Hgb Hct MCV MCH MCHC RDW Plt Count Seg Neutrophils % Lymphocytes % Monocytes % Eosinophils % Basophils % Absolute Neutrophils Absolute Lymphocytes Absolute Monocytes Absolute Eosinophils Absolute Basophils Sodium Potassium Chloride Carbon Dioxide Anion Gap BUN Creatinine Est GFR ( Amer) Est GFR (Non-Af Amer) Glucose Calcium Magnesium Total Bilirubin AST ALT Alkaline Phosphatase Total Protein Albumin TSH 3.45 Free T4 1.15 Free T3 pg/mL 4.94 Urine Color Urine Appearance Urine pH Ur Specific [place] Urine Protein Urine Glucose (UA) Urine Ketones Urine Blood Urine Nitrite Ur Leukocyte Esterase Urine WBC (Auto) Urine RBC (Auto) 12/31/16 12/31/16 04:15 04:15 Creatine Kinase 374 H NT-Pro-B Natriuret Pep 387 H Impressions: Chest X-Ray 12/30/16 12:14 IMPRESSION: NO ACUTE RADIOGRAPHIC FINDING IN THE CHEST. Chest CT 12/30/16 13:44 IMPRESSION: NO SIGNIFICANT FINDING ON NON-CONTRASTED CHEST CT. Lung Scan-VQ NM 12/30/16 15:04 IMPRESSION: NORMAL VENTILATION-PERFUSION LUNG SCAN. NEGATIVE FOR PULMONARY EMBOLI. Assessment & Plan - Diagnosis (1) Acute on chronic renal failure Plan: Patient with acute on chronic renal failure she follows with outpatient nephrology. We will need to be cautious with diuresing her. For now I'm going to hold her valsartan and and her HCTZ. Her kidney function is only slightly better today. Will consult nephrology to assist. The patient has started in contact with her performing artist at [facility] who have recommended to her that if she was dissatisfied she could be transferred there. At this point I do think it is unnecessary and we will of viral performing artist and to have her evaluated. The patient is comfortable with this option. (2) Hypertensive emergency without congestive heart failure Plan: Patient is written for when necessary labetalol IV. We will continue her amlodipine 10. I'm holding her valsartan secondary to acute renal failure. Patient has an allergy to valsartan but states that the allergy goes away with combined with amlodipine. We'll add low-dose metoprolol especially given her tachycardia. Echocardiogram was done which showed 2 out of 6 grade diastolic dysfunction. BNP was mildly elevated on admission (3) Dyslipidemia Plan: Continue atorvastatin (4) Depression Plan: Continue bupropion. Thyroid panel looks good (5) Leukocytosis Plan: It is unclear to me why the patient has an elevated white count. her CT and chest x-ray were each negative. She denies any dysuria. Urinalysis shows moderate leukocyte esterase With few epithelial cells. Urine cultures pending. Patient remains afebrile (6) Shortness of breath Plan: I think the patient's shortness of breath is a reflection of her volume overload secondary to renal failure and diastolic heart failure. Hopefully we can help her diurese we will need to be cautious with this considering her renal function. (7) Diabetes 1.5, managed as type 1 Plan: Continue Lantus daily. Continue current sliding scale insulin. Her full 24 hours his past albumin to determine exactly what the patient's needs are. We will need to increase her Lantus. Diabetic diet. Hemoglobin A1c is 9.9. - Time Time Spent with patient: 35 or more minutes - Time spent chart review, speaking to the patient's now former PCP, discussion with patient and her mother, patient exam - Inpatient Certification Medical Necessity: Significant Comorbidiites Make Outpatient Treatment Too Risky
[2016-12-31] MEDS: METOPROLOL TARTRATE 25 MG TABLET PO SCH (20:05)
[2017-01-01 04:04] LABS: ABSOLUTE EOSINOPHILS # (AUTO) 0.2 10^3/uL (0.0-0.6); ABSOLUTE LYMPHOCYTES (AUTO) 3.9 10^3/uL (0.5-4.7); ABSOLUTE MONOCYTES (AUTO) 0.8 10^3/uL (0.1-1.4); ABSOLUTE NEUT (AUTO) 10.4 10^3/uL (1.7-8.2); BASOPHILS % (AUTO) 0.3 % (0-2); EOSINOPHILS % (AUTO) 1.3 % (0-6); HEMATOCRIT 24.7 % (36.0-47.0); HEMOGLOBIN 8.1 g/dL (12.0-15.5); HGB HCT DIFFERENCE -0.4; LYMPHOCYTES % (AUTO) 25.2 % (13-45); MEAN CORPUSCULAR HEMOGLOBIN 28.1 pg (27.0-33.4); MEAN CORPUSCULAR HGB CONC 32.7 g/dL (32.0-36.0); MEAN CORPUSCULAR VOLUME 86 fl (80-97); MONOCYTES % (AUTO) 5.4 % (3-13); RED BLOOD COUNT 2.88 10^6/uL (3.72-5.28); RED CELL DISTRIBUTION WIDTH 12.7 % (11.5-14.0); SEGMENTED NEUTROPHILS % (AUTO) 67.8 % (42-78); WHITE BLOOD COUNT 15.3 10^3/uL (4.0-10.5)
[2017-01-01 04:05] LABS: VENOUS BLOOD BASE EXCESS -0.1 mmol/L; VENOUS BLOOD HCO3 25.4 mmol/L (20-32); VENOUS BLOOD PCO2 44.9 mmHg (35-63); VENOUS BLOOD PH 7.37 (7.30-7.42)
[2017-01-01 04:10] LABS: ANION GAP 6 (5-19); BLOOD UREA NITROGEN 33 mg/dL (7-20); CARBON DIOXIDE 25 mmol/L (22-30); CHLORIDE 110 mmol/L (98-107); CREATININE RESULT 2.68 mg/dL (0.52-1.25); GLUCOSE 137 mg/dL (75-110); MAGNESIUM 2.2 mg/dL (1.6-2.3); POTASSIUM 4.5 mmol/L (3.6-5.0); SODIUM 140.6 mmol/L (137-145)
[2017-01-01] MEDS: BUPROPION HCL 100 MG TABLET PO SCH ×3 (05:50→22:48)
[2017-01-01] MEDS: ENOXAPARIN SODIUM INJ 40 MG/0.4 ML DISP.SYRIN SUBCUT SCH (08:16)
[2017-01-01] MEDS: INSULIN REG, HUMAN 100 UNIT/ML 3 ML VIAL (PYX) SUBCUT PRN ×3 (08:16→22:56)
[2017-01-01] MEDS: INSULIN GLARGINE,HUM.REC.ANLOG 300 UNIT/3 ML INSULN.PEN SUBCUT SCH (09:44)
[2017-01-01] MEDS: METOPROLOL TARTRATE 25 MG TABLET PO SCH ×2 (09:47→22:48)
[2017-01-01] MEDS: DOXAZOSIN MESYLATE 4 MG TABLET PO SCH (09:48)
[2017-01-01] MEDS: AMLODIPINE BESYLATE 10 MG TABLET PO SCH (09:48)
[2017-01-01] MEDS: ATORVASTATIN CALCIUM 20 MG TABLET PO SCH (09:48)
[2017-01-01] MEDS: FUROSEMIDE INJ/PF 20 MG/2 ML SDV IV SCH (09:49)
[2017-01-01] MEDS: AMOXICILLIN TR/POT CLAVULANATE 500-125 MG TAB PO SCH ×2 (14:51→22:48)
--- NOTE | 2017-01-01 15:08 | PDOC PROGRESS REPORT ---
Subjective Progress Note for:: 01/01/17 Subjective:: This is a follow-up visit for acute renal failure. Patient had no acute events overnight. Physical Exam Vital Signs: Temp Pulse Resp BP Pulse Ox 98.0 F 79 20 149/82 H 100 01/01/17 11:18 01/01/17 11:18 01/01/17 11:18 01/01/17 11:18 01/01/17 11:18 Intake & Output 12/31/16 01/01/17 01/02/17 06:59 06:59 06:59 Intake Total 345 1251 Output Total 336 Balance 9 1251 Weight 82.3 kg 83.2 kg PHYSICAL EXAM: GENERAL: This is a well-developed well-nourished -Romanian female resting in no acute distress. HEART: Regular rate and rhythm. 2/6 murmurs. No rubs or gallops. LUNGS: Clear to auscultation bilaterally with equal rise and fall of the chest. ABDOMEN: Soft, nontender, slightly less distended with normoactive bowel sounds EXTREMITIES: No clubbing cyanosis. Down to 1+ edema. 1+ peripheral pulses. NEURO: Awake, alert, oriented x-3. Cranial nerves II through XII grossly intact. PSYCH: Normal affect. Results Laboratory Results: 01/01/17 03:47 01/01/17 03:47 01/01/17 01/01/17 01/01/17 03:47 03:47 03:47 WBC 15.3 H RBC 2.88 L Hgb 8.1 L Hct 24.7 L MCV 86 MCH 28.1 MCHC 32.7 RDW 12.7 Plt Count 259 Seg Neutrophils % 67.8 Lymphocytes % 25.2 Monocytes % 5.4 Eosinophils % 1.3 Basophils % 0.3 Absolute Neutrophils 10.4 H Absolute Lymphocytes 3.9 Absolute Monocytes 0.8 Absolute Eosinophils 0.2 Absolute Basophils 0.0 VBG pH 7.37 VBG pCO2 44.9 VBG HCO3 25.4 VBG Base Excess -0.1 Sodium 140.6 Potassium 4.5 Chloride 110 H Carbon Dioxide 25 Anion Gap 6 BUN 33 H Creatinine 2.68 H Est GFR ( Amer) 25 L Est GFR (Non-Af Amer) 21 L Glucose 137 H Calcium 8.0 L Magnesium 2.2 12/31/16 00:35 Clean Catch Midstream Urine Culture - Final Group B Beta Streptococcus Mixed Urogenital Roberta 12/31/16 12/31/16 04:15 04:15 Creatine Kinase 374 H NT-Pro-B Natriuret Pep 387 H Impressions: Chest X-Ray 12/30/16 12:14 IMPRESSION: NO ACUTE RADIOGRAPHIC FINDING IN THE CHEST. Chest CT 12/30/16 13:44 IMPRESSION: NO SIGNIFICANT FINDING ON NON-CONTRASTED CHEST CT. Lung Scan-VQ NM 12/30/16 15:04 IMPRESSION: NORMAL VENTILATION-PERFUSION LUNG SCAN. NEGATIVE FOR PULMONARY EMBOLI. Assessment & Plan - Diagnosis (1) Acute on chronic renal failure Plan: Patient with acute on chronic renal failure she follows with outpatient nephrology. We will need to be cautious with diuresing her. For now I'm going to hold her valsartan and and her HCTZ. Her kidney function is slightly worse today. Will consult nephrology to assist. We'll also hold any further Lasix for now. The patient's swelling is greatly reduced with low-dose 6 and a short amount of time (2) Hypertensive emergency without congestive heart failure Plan: Patient is written for when necessary labetalol IV. We will continue her amlodipine 10. And metoprolol 12.5 twice a day. Blood pressure is much better controlled today. Echocardiogram was done which showed 2 out of 6 grade diastolic dysfunction. BNP was mildly elevated on admission (3) Dyslipidemia Plan: Continue atorvastatin (4) Depression Plan: Continue bupropion. Thyroid panel looks good (5) Shortness of breath Plan: I think the patient's shortness of breath is a reflection of her volume overload secondary to renal failure and diastolic heart failure. Hopefully we can help her diurese we will need to be cautious with this considering her renal function. Shortness of breath is resolved. (6) Diabetes 1.5, managed as type 1 Plan: Continue Lantus daily. Continue current sliding scale insulin. I think the patient needs scheduled [place] insulin at around 4-5 units. The patient is convinced that if she were at home doing sliding scale herself that she would have her blood sugars under better control. She seems a bit reluctant to try things at different way. For now I will leave things as is and adjust as the patient will allow me. Diabetic diet. Hemoglobin A1c is 9.9. (7) UTI (urinary tract infection) Plan: Begin Augmentin by mouth. Strep was seen in the urine. Await final cultures. With the ptosis is back to what it was when she first presented. - Time Time Spent with patient: 15-24 minutes - Inpatient Certification Medical Necessity: Need Close Monitoring Due to Risk of Patient Decompensation
[2017-01-01] MEDS: INSULIN REG, HUMAN 100 UNIT/ML 3 ML VIAL (PYX) SUBCUT SCH (17:03)
[2017-01-02] MEDS: AMOXICILLIN TR/POT CLAVULANATE 500-125 MG TAB PO SCH ×3 (06:00→21:14)
[2017-01-02] MEDS: BUPROPION HCL 100 MG TABLET PO SCH ×3 (06:00→21:14)
[2017-01-02 06:06] LABS: ABSOLUTE BASOPHILS # (AUTO) 0.1 10^3/uL (0.0-0.2); ABSOLUTE EOSINOPHILS # (AUTO) 0.2 10^3/uL (0.0-0.6); ABSOLUTE LYMPHOCYTES (AUTO) 3.7 10^3/uL (0.5-4.7); ABSOLUTE MONOCYTES (AUTO) 0.8 10^3/uL (0.1-1.4); BASOPHILS % (AUTO) 0.3 % (0-2); EOSINOPHILS % (AUTO) 1.4 % (0-6); HEMATOCRIT 23.9 % (36.0-47.0); HGB HCT DIFFERENCE 0.1; LYMPHOCYTES % (AUTO) 23.3 % (13-45); MEAN CORPUSCULAR HEMOGLOBIN 28.6 pg (27.0-33.4); MEAN CORPUSCULAR HGB CONC 33.4 g/dL (32.0-36.0); MEAN CORPUSCULAR VOLUME 86 fl (80-97); RED CELL DISTRIBUTION WIDTH 12.5 % (11.5-14.0); WHITE BLOOD COUNT 15.7 10^3/uL (4.0-10.5)
[2017-01-02 06:27] LABS: ANION GAP 7 (5-19); BLOOD UREA NITROGEN 39 mg/dL (7-20); CARBON DIOXIDE 24 mmol/L (22-30); CHLORIDE 108 mmol/L (98-107); GLUCOSE 139 mg/dL (75-110); MAGNESIUM 2.4 mg/dL (1.6-2.3); POTASSIUM 4.8 mmol/L (3.6-5.0); SODIUM 139.3 mmol/L (137-145)
[2017-01-02] MEDS: METOPROLOL TARTRATE 25 MG TABLET PO SCH ×2 (09:49→21:14)
[2017-01-02] MEDS: DOXAZOSIN MESYLATE 4 MG TABLET PO SCH (09:50)
[2017-01-02] MEDS: ATORVASTATIN CALCIUM 20 MG TABLET PO SCH (09:50)
[2017-01-02] MEDS: AMLODIPINE BESYLATE 10 MG TABLET PO SCH (09:50)
[2017-01-02] MEDS: ENOXAPARIN SODIUM INJ 40 MG/0.4 ML DISP.SYRIN SUBCUT SCH (09:53)
[2017-01-02] MEDS: INSULIN GLARGINE,HUM.REC.ANLOG 300 UNIT/3 ML INSULN.PEN SUBCUT SCH (09:54)
[2017-01-02] MEDS: INSULIN REG, HUMAN 100 UNIT/ML 3 ML VIAL (PYX) SUBCUT SCH ×3 (09:55→18:37)
[2017-01-02] MEDS: INSULIN REG, HUMAN 100 UNIT/ML 3 ML VIAL (PYX) SUBCUT PRN (12:34)
[2017-01-02] MEDS: TRAMADOL HCL 50 MG TABLET PO PRN (14:20)
--- NOTE | 2017-01-02 14:53 | PDOC PROGRESS REPORT ---
Subjective Progress Note for:: 01/02/17 Subjective:: This is a follow-up visit for acute renal failure. Patient had no acute events overnight. Physical Exam Vital Signs: Temp Pulse Resp BP Pulse Ox 98.0 F 85 16 132/75 H 99 01/02/17 08:12 01/02/17 08:12 01/02/17 08:12 01/02/17 08:12 01/02/17 08:12 Intake & Output 01/01/17 01/02/17 01/03/17 06:59 06:59 06:59 Intake Total 1251 1766 Output Total 800 Balance 1251 966 Weight 83.2 kg 83.3 kg PHYSICAL EXAM: GENERAL: This is a well-developed well-nourished -[place]ames[place] female resting in no acute distress. HEART: Regular rate and rhythm. 2/6 murmurs. No rubs or gallops. LUNGS: Clear to auscultation bilaterally with equal rise and fall of the chest. ABDOMEN: Soft, nontender, slightly less distended with normoactive bowel sounds EXTREMITIES: No clubbing cyanosis. Down to trace edema. 1+ peripheral pulses. NEURO: Awake, alert, oriented x-3. Cranial nerves II through XII grossly intact. Results Laboratory Results: 01/02/17 05:20 01/02/17 05:20 01/02/17 01/02/17 05:20 05:20 WBC 15.7 H RBC 2.80 L Hgb 8.0 L Hct 23.9 L MCV 86 MCH 28.6 MCHC 33.4 RDW 12.5 Plt Count 255 Seg Neutrophils % 70.0 Lymphocytes % 23.3 Monocytes % 5.0 Eosinophils % 1.4 Basophils % 0.3 Absolute Neutrophils 11.0 H Absolute Lymphocytes 3.7 Absolute Monocytes 0.8 Absolute Eosinophils 0.2 Absolute Basophils 0.1 Sodium 139.3 Potassium 4.8 Chloride 108 H Carbon Dioxide 24 Anion Gap 7 BUN 39 H Creatinine 2.40 H Est GFR ( Amer) 28 L Est GFR (Non-Af Amer) 24 L Glucose 139 H Calcium 8.0 L Magnesium 2.4 H 12/31/16 12/31/16 04:15 04:15 Creatine Kinase 374 H NT-Pro-B Natriuret Pep 387 H Impressions: Chest X-Ray 12/30/16 12:14 IMPRESSION: NO ACUTE RADIOGRAPHIC FINDING IN THE CHEST. Chest CT 12/30/16 13:44 IMPRESSION: NO SIGNIFICANT FINDING ON NON-CONTRASTED CHEST CT. Lung Scan-VQ NM 12/30/16 15:04 IMPRESSION: NORMAL VENTILATION-PERFUSION LUNG SCAN. NEGATIVE FOR PULMONARY EMBOLI. Assessment & Plan - Diagnosis (1) Acute on chronic renal failure Plan: Patient with acute on chronic renal failure she follows with outpatient nephrology. We will need to be cautious with diuresing her. For now I'm going to hold her valsartan and and her HCTZ. Her kidney function is slightly better today. I consult nephrology ([facility]) back on . I have yet to see a consult to come by. 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 We'll also hold any further Lasix for now. The patient's swelling is greatly reduced with low-dose Lasix in a short amount of time (2) Hypertensive emergency without congestive heart failure Plan: Patient is written for when necessary labetalol IV. We will continue her amlodipine 10. And metoprolol 12.5 twice a day. Blood pressure is much better controlled again today. Echocardiogram was done which showed 2 out of 6 grade diastolic dysfunction. BNP was mildly elevated on admission (3) Dyslipidemia Plan: Continue atorvastatin (4) Depression Plan: Continue bupropion. Thyroid panel looks good (5) Shortness of breath Plan: I think the patient's shortness of breath is a reflection of her volume overload secondary to renal failure and diastolic heart failure. Hopefully we can help her diurese we will need to be cautious with this considering her renal function. Shortness of breath is resolved. (6) Diabetes 1.5, managed as type 1 Plan: Continue Lantus daily. Continue current sliding scale insulin. Continue 5 units mealtime insulin. Sliding scale insulin. Patient admits she does not eat breakfast in the morning. Diabetic diet. Hemoglobin A1c is 9.9. (7) UTI (urinary tract infection) Plan: Continue Augmentin by mouth. Strep was seen in the urine. Repeat CBC in a.m. for leukocytosis - Time Time Spent with patient: 15-24 minutes - Inpatient Certification Medical Necessity: Significant Comorbidiites Make Outpatient Treatment Too Risky
[2017-01-02] MEDS ORDERED: EPOETIN ALFA INJ 20000 UNIT/1 ML VIAL (RENAL) SUBCUT ONE (16:25)
[2017-01-02] MEDS ORDERED: FUROSEMIDE 20 MG TABLET PO ONE (16:30)
[2017-01-02] MEDS ORDERED: MORPHINE SULFATE 10 MG/ML INJ IV PRN (16:39)
[2017-01-02] MEDS ORDERED: OXYCODONE-ACETAMINOPHEN 5-325 MG TABLET PO PRN (16:40)
--- NOTE | 2017-01-02 16:53 | PDOC CONSULTATION ---
Consultation Consult Date: 01/02/17 Attending physician:: KAMILLE NGUYEN Consult reason:: I was asked by Dr. Nguyen to see the patient today because of acute on chronic kidney disease. History of Present Illness Admission Date/PCP: 12/30/16 16:52 YAMILE LAURA PA-C History of Present Illness: Patient is a young 31-year-old -[place] lady with history of chronic kidney disease stage III, diabetes mellitus type I, hypertension who presented to the emergency room on 12/30/2016 because of worsening lower extremity swelling and shortness of breath. Patient was worked up with CT scan of the chest, VQ scan, chest x-ray and lab work. The CT scan and VQ scan and were negative. The chest x-ray did not really show any acute radiographic findings including pulmonary congestion. Patient did have an echocardiogram which showed normal left ventricular ejection fraction but with grade 2/6 diastolic dysfunction. Her lab work showed her BUN was 24 and creatinine of 2.5 with estimated GFR of 27 on admission. Yesterday they were BUN of 33 creatinine of 2.68 with estimated GFR of 25. Today she had BUN of 39 and creatinine of 2.4 with estimated GFR of 28. The patient's mother told me that on the day of admission she called her public health dentist, Dr. Mishra from [place] and she was told to the admitting BUN and creatinine were actually better than what was drawn in [place] on December 23 when the patient saw . However the mother and the patient could not really tell me the actual kidney function at that time. From review of her records from here in the hospital it looks like the patient has progressive deterioration of her kidney function. On 2016 she had a BUN of 36 creatinine of 1.8, BUN of 30 creatinine of 1.74 on , and BUN of 22 creatinine 1.42 with estimated GFR of 53 on 03/17/2016. On December 23 in the patient saw her public health dentist, she decreased her Lasix from 60 mg to 20 mg daily. Patient said that her public health dentist thought that she is getting dehydrated that's why she decreased the dose. However since then her leg swelling and shortness of breath has gotten worse. On admission the patient also presented with elevated blood pressure which is currently improved. Patient was given Lasix 20 mg IV every 12 hours last dose was yesterday morning. Her valsartan was held and she is being given amlodipine and metoprolol which is controlling her blood pressure pretty good. Patient tells me that her breathing is somewhat better and her leg swelling is also better as confirmed by the mother at bedside. When I saw her she was complaining of some pain in her left side of her face neck and chest for which she was given tramadol just now. Patient tells me that she doesn't really drink much fluids every day probably 1 L or less. It appears that her diabetes is also not very well controlled with A1c currently is 9.9 previously 7.5 per patient. Patient's last kidney ultrasound was August 2016 at [place]. Her next follow-up appointment with her public health dentist as scheduled in 3 months. Today aside from pain in her left side of the face and chest she denies any orthopnea, PND, and fever. She said she has some occasional cough. She denies problems with urination and denied any history of kidney stones. When I asked her about proteinuria she is aware that she does have proteinuria but unknown as to how much. She denies any hematuria nor blood in the stool. She is not aware of anemia in the past. She denies intake of any nonsteroidal anti- inflammatory agents, claims that she is not eating a lot of salty food, and avoids red meat. Past Medical History Cardiac Medical History: Reports: Hyperlipidemia, Hypertension-primary Endocrine Medical History: Reports: Diabetes Mellitus Type 1 - Diagnosis Complications of Diabetes: Reports: Autonomic Neuropathy, Nephropathy, Retinopathy Musculoskeltal Medical History: Denies: Systemic Lupus Erythematosus Psychiatric Medical History: Reports: Depression Past Surgical History Past Surgical History: Reports: Section, Other - D&C once Social History Information Source: Patient, Parent Lives with: Family Smoking Status: Never Smoker Frequency of Alcohol Use: None Hx Recreational Drug Use: No Hx Prescription Drug Abuse: No - Advance Directive Resuscitation Status: Full Code Family History Family History: DM - Mother, Hypertension - Mother, Malignancy - Breast cancer in her mother Parental Family History Reviewed: Yes Children Family History Reviewed: Yes Sibling(s) Family History Reviewed.: No Medication/Allergy Home Medications: Amlodipine/Valsartan [Amlodipine-Valsartan 10-320 mg] 1 tab PO DAILY 12/30/16 Atorvastatin Calcium [Lipitor 20 mg Tablet] 20 mg PO DAILY 12/30/16 Bupropion HCl [Wellbutrin Xl] 300 mg PO DAILY 12/30/16 Furosemide [Lasix] 60 mg PO DAILY 12/30/16 Gabapentin [Neurontin 300 mg Capsule] 300 mg PO HSP PRN 12/30/16 Hydralazine HCl [Apresoline 50 mg Tablet] 25 mg PO Q12 12/30/16 Insulin Aspart [Novolog Insulin (Aspart) 100 unit/mL] 0 units SQ AC PRN Insulin Glargine,Hum.rec.anlog [Lantus Insulin 100 Unit/1 ml 10 ml] 20 units SQ QAM 12/30/16 Terazosin HCl [Hytrin] 5 mg PO DAILY 12/30/16 Tramadol HCl [Ultram 50 mg Tablet] 50 mg PO DAILYP PRN 12/30/16 Allergies/Adverse Reactions: varSartan Adverse Reaction (Uncoded 12/30/16 11:49) Review of Systems All systems: reviewed and no additional remarkable complaints except as stated Review of Systems: Constitutional: ABSENT:, fatigue, fever(s), headache(s), weight gain, weight loss; she feels cold all the time Eyes: ABSENT: visual disturbances Ears: ABSENT: hearing changes Cardiovascular: ABSENT: orthropnea, palpitations; admit shortness of breath especially on exertion, chest pain, and edema Respiratory: ABSENT: hemoptysis, admits occasional cough Gastrointestinal: ABSENT: abdominal pain, constipation, diarrhea, hematemesis, hematochezia, nausea, vomiting Genitourinary: ABSENT: dysuria, hematuria Musculoskeletal: ABSENT: joint swelling Integumentary: ABSENT: rash, wounds Neurological: ABSENT: abnormal gait, abnormal speech, confusion, dizziness, focal weakness, numbness, syncope Psychiatric: ABSENT: anxiety, depression Endocrine: ABSENT: cold intolerance, heat intolerance, polydipsia, polyuria Hematologic/Lymphatic: ABSENT: easy bleeding, easy bruising, lymphadenopathy Physical Exam Vital Signs: Temp Pulse Resp BP Pulse Ox 98.0 F 91 16 132/75 H 99 01/02/17 08:12 01/02/17 14:00 01/02/17 08:12 01/02/17 08:12 01/02/17 08:12 Intake & Output 01/01/17 01/02/17 01/03/17 06:59 06:59 06:59 Intake Total 1251 1766 Output Total 800 Balance 1251 966 Weight 83.2 kg 83.3 kg Exam: General appearance: no acute distress, cooperative, well-developed, well- nourished Head exam: PRESENT: atraumatic, normocephalic Eye exam: PRESENT: Conjunctiva pale, EOMI, PERRLA. ABSENT: conjunctival injection, scleral icterus Mouth exam: PRESENT: moist, neck supple, tongue midline Neck exam: PRESENT: full ROM. ABSENT: carotid bruit, JVD, lymphadenopathy, thyromegaly Respiratory exam: PRESENT: clear to auscultation bilaterally. ABSENT: rales, rhonchi, stridor, wheezes Cardiovascular exam: PRESENT: RRR, +S1, +S2. ABSENT: systolic murmur Pulses: PRESENT: normal radial pulses, normal dorsalis pedis pulses GI/Abdominal exam: PRESENT: normal bowel sounds, soft. ABSENT: guarding, mass, tenderness Rectal exam: deferred Extremities exam: PRESENT: full ROM. Trace bilateral lower extremity pedal edema reportedly improved ABSENT: calf tenderness Musculoskeletal: PRESENT: full ROM. ABSENT: deformity Neurological exam: PRESENT: alert, Awake, Oriented to person, Oriented to place , Oriented to time, reflexes normal, CN II-XII grossly intact. ABSENT: motor sensory deficit Psychiatric exam: PRESENT: appropriate affect, normal mood. ABSENT: homicidal ideation, suicidal ideation Skin exam: PRESENT: intact, dry, warm. ABSENT: rash Results Laboratory Results: 01/02/17 05:20 01/02/17 05:20 01/02/17 01/02/17 05:20 05:20 WBC 15.7 H RBC 2.80 L Hgb 8.0 L Hct 23.9 L MCV 86 MCH 28.6 MCHC 33.4 RDW 12.5 Plt Count 255 Seg Neutrophils % 70.0 Lymphocytes % 23.3 Monocytes % 5.0 Eosinophils % 1.4 Basophils % 0.3 Absolute Neutrophils 11.0 H Absolute Lymphocytes 3.7 Absolute Monocytes 0.8 Absolute Eosinophils 0.2 Absolute Basophils 0.1 Sodium 139.3 Potassium 4.8 Chloride 108 H Carbon Dioxide 24 Anion Gap 7 BUN 39 H Creatinine 2.40 H Est GFR ( Amer) 28 L Est GFR (Non-Af Amer) 24 L Glucose 139 H Calcium 8.0 L Magnesium 2.4 H 12/31/16 12/31/16 04:15 04:15 Creatine Kinase 374 H NT-Pro-B Natriuret Pep 387 H Impressions: Chest X-Ray 12/30/16 12:14 IMPRESSION: NO ACUTE RADIOGRAPHIC FINDING IN THE CHEST. Chest CT 12/30/16 13:44 IMPRESSION: NO SIGNIFICANT FINDING ON NON-CONTRASTED CHEST CT. Lung Scan-VQ NM 12/30/16 15:04 IMPRESSION: NORMAL VENTILATION-PERFUSION LUNG SCAN. NEGATIVE FOR PULMONARY EMBOLI. Assessment & Plan - Diagnosis (1) Acute on chronic renal failure Is this a current diagnosis for this admission?: YesPlan: Kidney function has been progressively deteriorating for the last few months. Apparently the patient's kidney function admission was actually better then about 10 days ago by history. If there is an acute deterioration of kidney function it could be secondary to prerenal factors which could be due to overdiuresis in a patient who has minimal fluid intake. The patient's kidney function so far has been stable since admission and this might be her new baseline. She is nonoliguric. Her symptoms has improved with initiation of IV diuretics. She does need to be on maintenance diuretics considering her condition. I will start her with a maintenance Lasix 20 mg by mouth daily starting today. We will adjust dose as necessary depending on how she responds. I informed her nurse to do strict intake and output recordings. (2) Chronic kidney disease, stage III (moderate) Is this a current diagnosis for this admission?: YesPlan: There is most likely secondary to diabetic nephropathy with associated proteinuria. She also has hypoalbuminemia and history of dyslipidemia. All of this consistent with possible nephrotic syndrome. I will get records from her public health dentist in [place]. I will also order labs to see of there is any, patient's of kidney disease. I will order renal ultrasound today. I explained to the patient and her mother that the best way to prevent progression of chronic kidney disease will be to control her diabetes and hypertension which seem to be uncontrolled at this time. Also remind her to avoid salts and nephrotoxic agents including nonsteroidal anti-inflammatory agents. I also explained to the patient and the mother the importance of adequate amount of fluid intake while she is taking diuretics to prevent dehydration. Also explained the need for Lasix due to her condition. (3) Diabetic nephropathy Is this a current diagnosis for this admission?: YesPlan: We will request for urine for protein creatinine ratio, and serum for protein electrophoresis just to make sure there is no other cause of her proteinuria. When her kidney function stabilized we need to resume her valsartan for anti- proteinuric effect. (4) Anemia in chronic kidney disease (CKD) Is this a current diagnosis for this admission?: YesPlan: Please to rule out iron deficiency so we will order iron panel. I will give her a dose of Procrit 20,000 units subcutaneously 1 dose today. Check stool for occult blood. (5) Hypermagnesemia Is this a current diagnosis for this admission?: Yes (6) Diabetes 1.5, managed as type 1 Is this a current diagnosis for this admission?: Yes (7) Dyslipidemia Is this a current diagnosis for this admission?: Yes (8) Hypertension Qualifiers: Hypertension type: essential hypertension Qualified Code(s): I10 - Essential (primary) hypertension Is this a current diagnosis for this admission?: YesPlan: Continue current medication this it's controlling her blood pressure. - Notes Notes: Thank you very much for this consultation. Discussed impression and plan with the patient and her mother. - Time Time Spent: Greater than 70 Minutes
[2017-01-02] MEDS: ONDANSETRON HCL INJ/PF 4 MG/2 ML SDV IV PRN (22:15)
[2017-01-03] MEDS: AMOXICILLIN TR/POT CLAVULANATE 500-125 MG TAB PO SCH ×3 (05:45→21:43)
[2017-01-03] MEDS: BUPROPION HCL 100 MG TABLET PO SCH ×3 (05:45→21:43)
[2017-01-03 06:24] LABS: ANION GAP 5 (5-19); BLOOD UREA NITROGEN 37 mg/dL (7-20); CALCIUM 8.1 mg/dL (8.4-10.2); CARBON DIOXIDE 25 mmol/L (22-30); CHLORIDE 110 mmol/L (98-107); CREATININE RESULT 2.31 mg/dL (0.52-1.25); GLUCOSE 100 mg/dL (75-110); MAGNESIUM 2.5 mg/dL (1.6-2.3); PHOSPHORUS 4.9 mg/dL (2.5-4.5); SODIUM 139.9 mmol/L (137-145)
[2017-01-03 06:25] LABS: ABSOLUTE EOSINOPHILS # (AUTO) 0.1 10^3/uL (0.0-0.6); ABSOLUTE MONOCYTES (AUTO) 0.7 10^3/uL (0.1-1.4); ABSOLUTE NEUT (AUTO) 12.8 10^3/uL (1.7-8.2); BASOPHILS % (AUTO) 0.2 % (0-2); EOSINOPHILS % (AUTO) 0.5 % (0-6); HEMATOCRIT 23.9 % (36.0-47.0); HGB HCT DIFFERENCE -0.2; LYMPHOCYTES % (AUTO) 18.1 % (13-45); MEAN CORPUSCULAR HEMOGLOBIN 28.6 pg (27.0-33.4); MEAN CORPUSCULAR HGB CONC 33.3 g/dL (32.0-36.0); MEAN CORPUSCULAR VOLUME 86 fl (80-97); MONOCYTES % (AUTO) 4.3 % (3-13); RED BLOOD COUNT 2.78 10^6/uL (3.72-5.28); RED CELL DISTRIBUTION WIDTH 12.8 % (11.5-14.0); SEGMENTED NEUTROPHILS % (AUTO) 76.9 % (42-78); WHITE BLOOD COUNT 16.6 10^3/uL (4.0-10.5)
[2017-01-03 06:35] LABS: HEMOGLOBIN 7.9 g/dL (12.0-15.5)
[2017-01-03 07:37] LABS: C-REACTIVE PROTEIN < 5.0 mg/L (<10.0)
[2017-01-03 07:45] LABS: ERYTHROCYTE SEDIMENTATION RATE 79 mm/hr (0-20)
[2017-01-03] MEDS ORDERED: FUROSEMIDE 20 MG TABLET PO SCH (10:00)
[2017-01-03] MEDS: AMLODIPINE BESYLATE 10 MG TABLET PO SCH (10:01)
[2017-01-03] MEDS: METOPROLOL TARTRATE 25 MG TABLET PO SCH ×2 (10:01→21:42)
[2017-01-03] MEDS: DOXAZOSIN MESYLATE 4 MG TABLET PO SCH (10:01)
[2017-01-03] MEDS: ATORVASTATIN CALCIUM 20 MG TABLET PO SCH (10:02)
[2017-01-03] MEDS: ENOXAPARIN SODIUM INJ 40 MG/0.4 ML DISP.SYRIN SUBCUT SCH (10:02)
[2017-01-03] MEDS: INSULIN REG, HUMAN 100 UNIT/ML 3 ML VIAL (PYX) SUBCUT SCH ×3 (10:08→17:04)
[2017-01-03] MEDS: INSULIN GLARGINE,HUM.REC.ANLOG 300 UNIT/3 ML INSULN.PEN SUBCUT SCH (10:09)
--- NOTE | 2017-01-03 14:42 | PDOC PROGRESS REPORT ---
Subjective Progress Note for:: 01/03/17 Subjective:: This is a follow-up visit for acute renal failure. She did have an episode of vomiting last night for which she was given an antiemetic. She states she feels very well today. Physical Exam Vital Signs: Temp Pulse Resp BP Pulse Ox 98.7 F 84 16 134/71 H 99 01/03/17 11:35 01/03/17 11:35 01/03/17 11:35 01/03/17 11:35 01/03/17 11:35 Intake & Output 01/02/17 01/03/17 01/04/17 06:59 06:59 06:59 Intake Total 1766 8 750 Output Total 800 840 Balance 966 -832 750 Weight 83.3 kg 82.4 kg PHYSICAL EXAM: GENERAL: This is a well-developed well-nourished -[place] female resting in no acute distress. HEART: Regular rate and rhythm. 2/6 murmurs. No rubs or gallops. LUNGS: Clear to auscultation bilaterally with equal rise and fall of the chest. ABDOMEN: Soft, nontender, slightly less distended with normoactive bowel sounds EXTREMITIES: No clubbing cyanosis. Down to trace edema. 1+ peripheral pulses. NEURO: Awake, alert, oriented x-3. Cranial nerves II through XII grossly intact. Results Laboratory Results: 01/03/17 05:21 01/03/17 05:21 01/03/17 01/03/17 05:21 05:21 WBC 16.6 H RBC 2.78 L Hgb 7.9 L Hct 23.9 L MCV 86 MCH 28.6 MCHC 33.3 RDW 12.8 Plt Count 274 Seg Neutrophils % 76.9 Lymphocytes % 18.1 Monocytes % 4.3 Eosinophils % 0.5 Basophils % 0.2 Absolute Neutrophils 12.8 H Absolute Lymphocytes 3.0 Absolute Monocytes 0.7 Absolute Eosinophils 0.1 Absolute Basophils 0.0 Retic Count (auto) 2.23 Absolute Retic 0.062 Sodium 139.9 Potassium 5.0 Chloride 110 H Carbon Dioxide 25 Anion Gap 5 BUN 37 H Creatinine 2.31 H Est GFR ( Amer) 30 L Est GFR (Non-Af Amer) 25 L Glucose 100 Calcium 8.1 L Phosphorus 4.9 H Magnesium 2.5 H Iron 52.7 TIBC 195 L % Saturation 27 Ferritin 242.00 H C-Reactive Protein < 5.0 Vitamin B12 879.0 Folate 10.10 12/31/16 12/31/16 04:15 04:15 Creatine Kinase 374 H NT-Pro-B Natriuret Pep 387 H Impressions: Chest X-Ray 12/30/16 12:14 IMPRESSION: NO ACUTE RADIOGRAPHIC FINDING IN THE CHEST. Chest CT 12/30/16 13:44 IMPRESSION: NO SIGNIFICANT FINDING ON NON-CONTRASTED CHEST CT. Lung Scan-VQ NM 12/30/16 15:04 IMPRESSION: NORMAL VENTILATION-PERFUSION LUNG SCAN. NEGATIVE FOR PULMONARY EMBOLI. Renal Ultrasound 01/02/17 00:00 IMPRESSION: UNREMARKABLE RENAL ULTRASOUND WITHOUT OBSTRUCTIVE UROPATHY. Assessment & Plan - Diagnosis (1) Acute on chronic renal failure Plan: Patient with acute on chronic renal failure stage III. she follows with outpatient nephrology. We will need to be cautious with diuresing her. For now I'm going to hold her valsartan and and her HCTZ. Her kidney function is slightly better today. Nephrology is following. (2) Hypertensive emergency without congestive heart failure Plan: Patient is written for when necessary labetalol IV. We will continue her amlodipine 10. And metoprolol 12.5 twice a day. Blood pressure is much better controlled again today. Echocardiogram was done which showed 2 out of 6 grade diastolic dysfunction. BNP was mildly elevated on admission. Continue current medications (3) Dyslipidemia Plan: Continue atorvastatin (4) Depression Plan: Continue bupropion. Thyroid panel looks good (5) Shortness of breath Plan: I think the patient's shortness of breath is a reflection of her volume overload secondary to renal failure and diastolic heart failure. Hopefully we can help her diurese. We will need to be cautious with this considering her renal function. Shortness of breath is resolved. (6) Diabetes 1.5, managed as type 1 Plan: Continue Lantus daily. Continue current sliding scale insulin. Continue 5 units mealtime insulin. Sliding scale insulin. Blood sugars are much better controlled today. Diabetic diet. Hemoglobin A1c is 9.9. (7) UTI (urinary tract infection) Plan: Continue Augmentin by mouth. Strep was seen in the urine. Patient's white blood cell count continues to climb. Hopefully this will plateau and began to come back down. Don't see any other sources of infection other than in her urine. CT of the chest on admission was negative. Will add on blood cultures for in the morning. Patient is afebrile - Time Time Spent with patient: 15-24 minutes - Inpatient Certification Medical Necessity: Significant Comorbidiites Make Outpatient Treatment Too Risky
--- NOTE | 2017-01-03 17:02 | EKG REPORT ---
SEVERITY:- BORDERLINE ECG - SINUS RHYTHM PROBABLE LEFT ATRIAL ABNORMALITY : Confirmed by: Maritza Miller MD 03-Jan-2017 17:01:21
--- NOTE | 2017-01-03 17:47 | PDOC PROGRESS REPORT ---
Subjective Progress Note for:: 01/03/17 Subjective:: Patient complains of left flank pain as well and is localized left chest pain. She is currently nauseated and could not stand the smell of her food. Otherwise she said she feels fine. Physical Exam Vital Signs: Temp Pulse Resp BP Pulse Ox 98.5 F 78 16 129/78 H 99 01/03/17 16:33 01/03/17 16:33 01/03/17 16:33 01/03/17 16:33 01/03/17 16:33 Intake & Output 01/02/17 01/03/17 01/04/17 06:59 06:59 06:59 Intake Total 1766 8 750 Output Total 800 840 Balance 966 -832 750 Weight 83.3 kg 82.4 kg Exam: General appearance: PRESENT: no acute distress, cooperative, well-developed, well-nourished Head exam: PRESENT: atraumatic, normocephalic Eye exam: PRESENT: conjunctiva pale, PERRLA. ABSENT: scleral icterus Neck exam: ABSENT: JVD Respiratory exam: PRESENT: Normal breath sounds. ABSENT: crackles, rales, rhonchi, unlabored, wheezes Cardiovascular exam: PRESENT: Regular rate rhythm -+S1, +S2. ABSENT: diastolic murmur, systolic murmur GI/Abdominal exam: PRESENT: normal bowel sounds, soft. ABSENT: guarding, mass, tenderness Extremities exam: ABSENT: No edema Neurological exam: PRESENT: alert, awake, oriented to person, place and time. Skin exam: PRESENT: dry, warm, Results Laboratory Results: 01/03/17 05:21 01/03/17 05:21 01/03/17 01/03/17 05:21 05:21 WBC 16.6 H RBC 2.78 L Hgb 7.9 L Hct 23.9 L MCV 86 MCH 28.6 MCHC 33.3 RDW 12.8 Plt Count 274 Seg Neutrophils % 76.9 Lymphocytes % 18.1 Monocytes % 4.3 Eosinophils % 0.5 Basophils % 0.2 Absolute Neutrophils 12.8 H Absolute Lymphocytes 3.0 Absolute Monocytes 0.7 Absolute Eosinophils 0.1 Absolute Basophils 0.0 Retic Count (auto) 2.23 Absolute Retic 0.062 Sodium 139.9 Potassium 5.0 Chloride 110 H Carbon Dioxide 25 Anion Gap 5 BUN 37 H Creatinine 2.31 H Est GFR ( Amer) 30 L Est GFR (Non-Af Amer) 25 L Glucose 100 Calcium 8.1 L Phosphorus 4.9 H Magnesium 2.5 H Iron 52.7 TIBC 195 L % Saturation 27 Ferritin 242.00 H C-Reactive Protein < 5.0 Vitamin B12 879.0 Folate 10.10 12/31/16 12/31/16 04:15 04:15 Creatine Kinase 374 H NT-Pro-B Natriuret Pep 387 H Impressions: Chest X-Ray 12/30/16 12:14 IMPRESSION: NO ACUTE RADIOGRAPHIC FINDING IN THE CHEST. Chest CT 12/30/16 13:44 IMPRESSION: NO SIGNIFICANT FINDING ON NON-CONTRASTED CHEST CT. Lung Scan-VQ NM 12/30/16 15:04 IMPRESSION: NORMAL VENTILATION-PERFUSION LUNG SCAN. NEGATIVE FOR PULMONARY EMBOLI. Renal Ultrasound 01/02/17 00:00 IMPRESSION: UNREMARKABLE RENAL ULTRASOUND WITHOUT OBSTRUCTIVE UROPATHY. Assessment & Plan - Diagnosis (1) Acute on chronic renal failure Is this a current diagnosis for this admission?: YesPlan: Kidney function has been progressively deteriorating for the last few months. Apparently the patient's kidney function upon admission was actually better than about 10 days ago by history. If there is an acute deterioration of kidney function it could be secondary to prerenal factors which could be due to overdiuresis in a patient who has minimal fluid intake. The patient's kidney function so far has been stable since admission and this might be at her new baseline. She is nonoliguric. Her symptoms has improved with initiation of IV diuretics. She does need to be on maintenance diuretics considering her condition. I informed her nurse to do strict intake and output recordings. She'll receive her Lasix 20 mg orally yesterday but was changed to Bumex 0.5 mg starting tomorrow. (2) Chronic kidney disease, stage III (moderate) Is this a current diagnosis for this admission?: YesPlan: There is most likely secondary to diabetic nephropathy with associated proteinuria. She also has hypoalbuminemia and history of dyslipidemia. All of this consistent with possible nephrotic syndrome. I will get records from her nanotechnology engineering technologist in [place]. I will also order labs to see of there is any, patient's of kidney disease. I explained to the patient and her mother that the best way to prevent progression of chronic kidney disease will be to control her diabetes and hypertension which seem to be uncontrolled at this time. Also remind her to avoid salts and nephrotoxic agents including nonsteroidal anti-inflammatory agents. I also explained to the patient and the mother the importance of adequate amount of fluid intake while she is taking diuretics to prevent dehydration. Also explained the need for diuretics due to her condition. Her renal ultrasound was unremarkable. (3) Diabetic nephropathy Is this a current diagnosis for this admission?: YesPlan: We will request for urine for protein creatinine ratio, and serum for protein electrophoresis just to make sure there is no other cause of her proteinuria. When her kidney function stabilized we need to resume her valsartan for anti- proteinuric effect. (4) Anemia in chronic kidney disease (CKD) Is this a current diagnosis for this admission?: YesPlan: She received Procrit 20,000 units subcutaneously 1 dose yesterday. Iron panel are acceptable and does not imply any iron deficiency. Check stool for occult blood. (5) Hypermagnesemia Is this a current diagnosis for this admission?: Yes (6) Diabetes 1.5, managed as type 1 Is this a current diagnosis for this admission?: Yes (7) Dyslipidemia Is this a current diagnosis for this admission?: Yes (8) Hypertension Qualifiers: Hypertension type: essential hypertension Qualified Code(s): I10 - Essential (primary) hypertension Is this a current diagnosis for this admission?: YesPlan: Controlled. Continue current medication. - Time Time with patient: 15-25 minutes
[2017-01-03] MEDS: INSULIN REG, HUMAN 100 UNIT/ML 3 ML VIAL (PYX) SUBCUT PRN (21:52)
[2017-01-04] MEDS: BUPROPION HCL 100 MG TABLET PO SCH ×3 (06:13→22:33)
[2017-01-04] MEDS: AMOXICILLIN TR/POT CLAVULANATE 500-125 MG TAB PO SCH ×3 (06:13→22:33)
[2017-01-04 06:51] LABS: ABSOLUTE EOSINOPHILS # (AUTO) 0.1 10^3/uL (0.0-0.6); ABSOLUTE LYMPHOCYTES (AUTO) 3.6 10^3/uL (0.5-4.7); ABSOLUTE MONOCYTES (AUTO) 0.9 10^3/uL (0.1-1.4); ABSOLUTE NEUT (AUTO) 11.9 10^3/uL (1.7-8.2); BASOPHILS % (AUTO) 0.2 % (0-2); EOSINOPHILS % (AUTO) 0.8 % (0-6); HEMATOCRIT 24.3 % (36.0-47.0); HEMOGLOBIN 8.2 g/dL (12.0-15.5); HGB HCT DIFFERENCE 0.3; LYMPHOCYTES % (AUTO) 21.7 % (13-45); MEAN CORPUSCULAR HEMOGLOBIN 29.3 pg (27.0-33.4); MEAN CORPUSCULAR VOLUME 86 fl (80-97); MONOCYTES % (AUTO) 5.3 % (3-13); RED BLOOD COUNT 2.81 10^6/uL (3.72-5.28); RED CELL DISTRIBUTION WIDTH 12.8 % (11.5-14.0); WHITE BLOOD COUNT 16.5 10^3/uL (4.0-10.5)
[2017-01-04 07:20] LABS: ANION GAP 6 (5-19); BLOOD UREA NITROGEN 39 mg/dL (7-20); CALCIUM 8.2 mg/dL (8.4-10.2); CARBON DIOXIDE 24 mmol/L (22-30); CHLORIDE 109 mmol/L (98-107); CREATININE RESULT 2.46 mg/dL (0.52-1.25); GLUCOSE 121 mg/dL (75-110); MAGNESIUM 2.6 mg/dL (1.6-2.3); POTASSIUM 5.1 mmol/L (3.6-5.0); SODIUM 138.8 mmol/L (137-145)
[2017-01-04] MEDS: INSULIN REG, HUMAN 100 UNIT/ML 3 ML VIAL (PYX) SUBCUT SCH ×3 (07:55→17:56)
[2017-01-04] MEDS: ENOXAPARIN SODIUM INJ 40 MG/0.4 ML DISP.SYRIN SUBCUT SCH (07:55)
[2017-01-04] MEDS: INSULIN GLARGINE,HUM.REC.ANLOG 300 UNIT/3 ML INSULN.PEN SUBCUT SCH (10:00)
[2017-01-04] MEDS: DOXAZOSIN MESYLATE 4 MG TABLET PO SCH (10:00)
[2017-01-04] MEDS: BUMETANIDE 1 MG TABLET PO SCH (10:01)
[2017-01-04] MEDS: AMLODIPINE BESYLATE 10 MG TABLET PO SCH (10:02)
[2017-01-04] MEDS: METOPROLOL TARTRATE 25 MG TABLET PO SCH ×2 (10:02→22:33)
[2017-01-04] MEDS: ATORVASTATIN CALCIUM 20 MG TABLET PO SCH (10:04)
[2017-01-04] MEDS: INSULIN REG, HUMAN 100 UNIT/ML 3 ML VIAL (PYX) SUBCUT PRN ×2 (11:47→22:52)
[2017-01-04 13:38] LABS: TRANSFERRIN 148 mg/dL (200-370)
[2017-01-04 14:06] LABS: PTH INTACT 74 pg/mL (15-65)
--- NOTE | 2017-01-04 14:38 | PDOC PROGRESS REPORT ---
Subjective Progress Note for:: 01/04/17 Subjective:: This is a follow-up visit for acute renal failure. Recall that Mrs. Adkins was admitted 4 days ago with shortness of breath and acute renal failure. During her admission here she was noted to have an elevated white blood cell count which has steadily declined. She has a urinary tract infection with strep. Her renal failure is largely unchanged. I suspect her intrinsic disease has gotten worse and that she may have a new baseline. She came in she had 2+ lower extremity pitting edema and abdominal distention. She was placed on IV Lasix and did achieve some improvement low-dose Lasix. Echocardiogram was done and showed diastolic dysfunction. She had a B in P of greater than 500 M was felt to have mild diastolic heart failure. She was then converted to by mouth Lasix. At this point she did not feel she was diuresing as well; therefore, she was changed to Bumex. Overnight she diuresed over a liter. Nephrology was consulted in this case and is currently following. Several renal studies are pending. She did have an episode of vomiting again last night for which she was given an antiemetic. She thinks that it could be the antibiotics or either the Bumex. She feels unwell today and very weak. Physical Exam Vital Signs: Temp Pulse Resp BP Pulse Ox 98.3 F 85 17 135/70 H 100 01/04/17 11:13 01/04/17 11:13 01/04/17 11:13 01/04/17 11:13 01/04/17 11:13 Intake & Output 01/03/17 01/04/17 01/05/17 06:59 06:59 06:59 Intake Total 8 1910 Output Total 840 1700 Balance -832 210 Weight 82.4 kg 82.4 kg PHYSICAL EXAM: GENERAL: This is a well-developed well-nourished -[place] female resting in no acute distress, but appearing extremely tired. HEART: Regular rate and rhythm. 2/6 murmurs. No rubs or gallops. LUNGS: Clear to auscultation bilaterally with equal rise and fall of the chest. ABDOMEN: Soft, nontender, distended with normoactive bowel sounds EXTREMITIES: No clubbing cyanosis. Down to trace edema. 1+ peripheral pulses. NEURO: Awake, alert, oriented x-3. Cranial nerves II through XII grossly intact. SKIN: Her skin appears moist and feel slightly clammy. Results Laboratory Results: 01/04/17 06:15 01/04/17 06:15 01/03/17 01/04/17 01/04/17 05:21 06:15 06:15 WBC 16.5 H RBC 2.81 L Hgb 8.2 L Hct 24.3 L MCV 86 MCH 29.3 MCHC 34.0 RDW 12.8 Plt Count 259 Seg Neutrophils % 72.0 Lymphocytes % 21.7 Monocytes % 5.3 Eosinophils % 0.8 Basophils % 0.2 Absolute Neutrophils 11.9 H Absolute Lymphocytes 3.6 Absolute Monocytes 0.9 Absolute Eosinophils 0.1 Absolute Basophils 0.0 Sodium 138.8 Potassium 5.1 H Chloride 109 H Carbon Dioxide 24 Anion Gap 6 BUN 39 H Creatinine 2.46 H Est GFR ( Amer) 28 L Est GFR (Non-Af Amer) 23 L Glucose 121 H Calcium 8.2 L Magnesium 2.6 H Transferrin 148 L PTH Intact 74 H 12/31/16 12/31/16 04:15 04:15 Creatine Kinase 374 H NT-Pro-B Natriuret Pep 387 H Impressions: Chest X-Ray 12/30/16 12:14 IMPRESSION: NO ACUTE RADIOGRAPHIC FINDING IN THE CHEST. Chest CT 12/30/16 13:44 IMPRESSION: NO SIGNIFICANT FINDING ON NON-CONTRASTED CHEST CT. Lung Scan-VQ NM 12/30/16 15:04 IMPRESSION: NORMAL VENTILATION-PERFUSION LUNG SCAN. NEGATIVE FOR PULMONARY EMBOLI. Renal Ultrasound 01/02/17 00:00 IMPRESSION: UNREMARKABLE RENAL ULTRASOUND WITHOUT OBSTRUCTIVE UROPATHY. Assessment & Plan - Diagnosis (1) Acute on chronic renal failure Plan: Patient with acute on chronic renal failure stage III. she follows with outpatient nephrology. We will need to be cautious with diuresing her. For now I'm going to hold her valsartan and and her HCTZ. Her kidney function is stable. I suspect this is her new baseline. Nephrology is following. (2) Hypertensive emergency without congestive heart failure Plan: Patient is written for when necessary labetalol IV. We will continue her amlodipine 10. And metoprolol 12.5 twice a day. Blood pressure is much better controlled again today. Echocardiogram was done which showed 2 out of 6 grade diastolic dysfunction. BNP was mildly elevated on admission. Continue current medications (3) Acute diastolic heart failure Plan: Continue Bumex. Likely her heart failure is secondary to her hypertensive emergency and uncontrolled blood pressure in addition to uncontrolled diabetes and CKD. (4) Dyslipidemia Plan: Continue atorvastatin (5) Depression Plan: Continue bupropion. Thyroid panel looks good (6) Shortness of breath Plan: I think the patient's shortness of breath is a reflection of her volume overload secondary to renal failure and diastolic heart failure. She is much improved. We will need to be cautious with this considering her renal function. Shortness of breath is resolved. (7) Diabetes 1.5, managed as type 1 Plan: Continue Lantus daily. Continue current sliding scale insulin. Continue 5 units mealtime insulin. Sliding scale insulin. Blood sugars are much better controlled. Diabetic diet. Hemoglobin A1c is 9.9. (8) UTI (urinary tract infection) Qualifiers: Urinary tract infection type: acute cystitis Plan: Continue Augmentin by mouth. Strep was seen in the urine. Patient's white blood cell count continues to climb. It is now plateaued at 16. Hopefully it will begin to come back down. I Don't see any other sources of infection other than in her urine. CT of the chest on admission was negative. Will add on blood cultures for in the morning. Patient is afebrile - Time Time Spent with patient: 15-24 minutes - Inpatient Certification Medical Necessity: Significant Comorbidiites Make Outpatient Treatment Too Risky - I hope to discharge the patient home today. She is now appearing ill with clamminess. Although her white blood cell count has plateaued it is still high. We will defer discharge another day.
[2017-01-04 14:39] LABS: CREATININE URINE 90.4 mg/dL (Not Estab.)
[2017-01-04] MEDS: ONDANSETRON HCL INJ/PF 4 MG/2 ML SDV IV PRN (15:11)
[2017-01-05] MEDS: BUPROPION HCL 100 MG TABLET PO SCH ×2 (06:02→14:08)
[2017-01-05] MEDS: AMOXICILLIN TR/POT CLAVULANATE 500-125 MG TAB PO SCH (06:02)
[2017-01-05 06:52] LABS: ABSOLUTE EOSINOPHILS # (AUTO) 0.2 10^3/uL (0.0-0.6); ABSOLUTE LYMPHOCYTES (AUTO) 4.1 10^3/uL (0.5-4.7); ABSOLUTE MONOCYTES (AUTO) 0.9 10^3/uL (0.1-1.4); ABSOLUTE NEUT (AUTO) 10.1 10^3/uL (1.7-8.2); BASOPHILS % (AUTO) 0.2 % (0-2); HEMATOCRIT 24.4 % (36.0-47.0); HEMOGLOBIN 8.2 g/dL (12.0-15.5); HGB HCT DIFFERENCE 0.2; LYMPHOCYTES % (AUTO) 26.8 % (13-45); MEAN CORPUSCULAR HEMOGLOBIN 29.2 pg (27.0-33.4); MEAN CORPUSCULAR HGB CONC 33.7 g/dL (32.0-36.0); MEAN CORPUSCULAR VOLUME 87 fl (80-97); MONOCYTES % (AUTO) 5.9 % (3-13); RED BLOOD COUNT 2.81 10^6/uL (3.72-5.28); RED CELL DISTRIBUTION WIDTH 13.1 % (11.5-14.0); SEGMENTED NEUTROPHILS % (AUTO) 66.1 % (42-78); WHITE BLOOD COUNT 15.3 10^3/uL (4.0-10.5)
[2017-01-05 07:11] LABS: ANION GAP 8 (5-19); BLOOD UREA NITROGEN 35 mg/dL (7-20); CALCIUM 8.1 mg/dL (8.4-10.2); CARBON DIOXIDE 24 mmol/L (22-30); CHLORIDE 110 mmol/L (98-107); CREATININE RESULT 2.59 mg/dL (0.52-1.25); GLUCOSE 113 mg/dL (75-110); MAGNESIUM 2.5 mg/dL (1.6-2.3); POTASSIUM 4.7 mmol/L (3.6-5.0); SODIUM 141.5 mmol/L (137-145)
[2017-01-05] MEDS: INSULIN REG, HUMAN 100 UNIT/ML 3 ML VIAL (PYX) SUBCUT SCH ×3 (08:08→17:04)
[2017-01-05] MEDS: ENOXAPARIN SODIUM INJ 40 MG/0.4 ML DISP.SYRIN SUBCUT SCH (08:08)
[2017-01-05] MEDS: DOXAZOSIN MESYLATE 4 MG TABLET PO SCH (09:54)
[2017-01-05] MEDS: ATORVASTATIN CALCIUM 20 MG TABLET PO SCH (09:54)
[2017-01-05] MEDS: BUMETANIDE 1 MG TABLET PO SCH (09:54)
[2017-01-05] MEDS: METOPROLOL TARTRATE 25 MG TABLET PO SCH (09:54)
[2017-01-05] MEDS: INSULIN GLARGINE,HUM.REC.ANLOG 300 UNIT/3 ML INSULN.PEN SUBCUT SCH (09:54)
[2017-01-05] MEDS: AMLODIPINE BESYLATE 10 MG TABLET PO SCH (09:54)
[2017-01-05 11:40] LABS: ALBUMIN 3 1.9 g/dL (2.9-4.4); ALPHA-1-GLOBULIN 0.1 g/dL (0.0-0.4); ALPHA-2-GLOBULIN 3 0.8 g/dL (0.4-1.0); GLOBULIN TTL 2.5 g/dL (2.2-3.9); IMMUNOGLOBULIN A 225 mg/dL (87-352); IMMUNOGLOBULIN G 667 mg/dL (700-1600); IMMUNOGLOBULIN M 82 mg/dL (26-217); MONOCLONAL-SPIKE Not Observed g/dL (Not Observed); PROTEIN TOTAL SERUM 4.4 g/dL (6.0-8.5)
[2017-01-05] MEDS: INSULIN REG, HUMAN 100 UNIT/ML 3 ML VIAL (PYX) SUBCUT PRN (12:59)
--- NOTE | 2017-01-05 13:14 | PDOC PROGRESS REPORT ---
Subjective Progress Note for:: 01/05/17 Subjective:: Patient is feeling well she has no complaints No chest pain no shortness of breath no abdominal pain She's been diuresing Physical Exam Vital Signs: Temp Pulse Resp BP Pulse Ox 99.8 F 71 18 132/77 H 100 01/05/17 11:18 01/05/17 11:18 01/05/17 11:18 01/05/17 11:18 01/05/17 11:18 Intake & Output 01/04/17 01/05/17 01/06/17 00:59 00:59 00:59 Intake Total 1424 1994 305 Output Total 2039 2500 Balance -615 -505 305 Weight 82.4 kg 82.4 kg General appearance: PRESENT: no acute distress, well-developed, well-nourished Head exam: PRESENT: atraumatic, normocephalic Eye exam: PRESENT: conjunctiva pink, EOMI, PERRLA. ABSENT: scleral icterus Ear exam: PRESENT: normal external ear exam Mouth exam: PRESENT: moist, tongue midline Neck exam: ABSENT: carotid bruit, JVD, lymphadenopathy, thyromegaly Respiratory exam: PRESENT: clear to auscultation eugenio. ABSENT: rales, rhonchi, wheezes Cardiovascular exam: PRESENT: RRR. ABSENT: diastolic murmur, rubs, systolic murmur Pulses: PRESENT: normal dorsalis pedis pul Vascular exam: PRESENT: normal capillary refill GI/Abdominal exam: PRESENT: normal bowel sounds, soft. ABSENT: distended, guarding, mass, organolmegaly, rebound, tenderness Rectal exam: PRESENT: deferred Extremities exam: PRESENT: full ROM. ABSENT: calf tenderness, clubbing, pedal edema Neurological exam: PRESENT: alert, awake, oriented to person, oriented to place , oriented to time, oriented to situation, CN II-XII grossly intact. ABSENT: motor sensory deficit Psychiatric exam: PRESENT: appropriate affect, normal mood. ABSENT: homicidal ideation, suicidal ideation Skin exam: PRESENT: dry, intact, warm. ABSENT: cyanosis, rash Results Laboratory Results: 01/05/17 06:17 01/05/17 06:17 01/03/17 01/03/17 01/04/17 05:21 05:21 14:42 WBC RBC Hgb Hct MCV MCH MCHC RDW Plt Count Seg Neutrophils % Lymphocytes % Monocytes % Eosinophils % Basophils % Absolute Neutrophils Absolute Lymphocytes Absolute Monocytes Absolute Eosinophils Absolute Basophils Sodium Potassium Chloride Carbon Dioxide Anion Gap BUN Creatinine Est GFR ( Amer) Est GFR (Non-Af Amer) Glucose Calcium Magnesium Transferrin 148 L Total Protein 4.4 L Albumin 1.9 L PTH Intact 74 H Stool Occult Blood NEGATIVE 01/05/17 01/05/17 06:17 06:17 WBC 15.3 H RBC 2.81 L Hgb 8.2 L Hct 24.4 L MCV 87 MCH 29.2 MCHC 33.7 RDW 13.1 Plt Count 260 Seg Neutrophils % 66.1 Lymphocytes % 26.8 Monocytes % 5.9 Eosinophils % 1.0 Basophils % 0.2 Absolute Neutrophils 10.1 H Absolute Lymphocytes 4.1 Absolute Monocytes 0.9 Absolute Eosinophils 0.2 Absolute Basophils 0.0 Sodium 141.5 Potassium 4.7 Chloride 110 H Carbon Dioxide 24 Anion Gap 8 BUN 35 H Creatinine 2.59 H Est GFR ( Amer) 26 L Est GFR (Non-Af Amer) 22 L Glucose 113 H Calcium 8.1 L Magnesium 2.5 H Transferrin Total Protein Albumin PTH Intact Stool Occult Blood 12/31/16 12/31/16 04:15 04:15 Creatine Kinase 374 H NT-Pro-B Natriuret Pep 387 H Impressions: Chest X-Ray 12/30/16 12:14 IMPRESSION: NO ACUTE RADIOGRAPHIC FINDING IN THE CHEST. Chest CT 12/30/16 13:44 IMPRESSION: NO SIGNIFICANT FINDING ON NON-CONTRASTED CHEST CT. Lung Scan-VQ NM 12/30/16 15:04 IMPRESSION: NORMAL VENTILATION-PERFUSION LUNG SCAN. NEGATIVE FOR PULMONARY EMBOLI. Renal Ultrasound 01/02/17 00:00 IMPRESSION: UNREMARKABLE RENAL ULTRASOUND WITHOUT OBSTRUCTIVE UROPATHY. Assessment & Plan - Diagnosis (3) Acute on chronic renal failure Is this a current diagnosis for this admission?: Yes (4) Diabetic nephropathy Is this a current diagnosis for this admission?: Yes (5) UTI (urinary tract infection) Qualifiers: Urinary tract infection type: acute cystitis Is this a current diagnosis for this admission?: Yes - Time Time Spent with patient: We'll switch antibiotic to Keflex 250 mg twice a day Continue the same management Patient may be discharged as per Dr. Foley Time Spent with patient: 25-34 minutes
--- NOTE | 2017-01-05 16:36 | PDOC DISCHARGE SUMMARY ---
General - Admit/Disc Date/PCP Admission Date/Primary Care Provider: 12/30/16 16:52 YAMILE LAURA PA-C Discharge Date: 01/05/17 - Discharge Diagnosis (2) Acute diastolic heart failure Is this a current diagnosis for this admission?: YesSummary: Secondary to fluid overload ; patient responded to Bumex by mouth (3) Acute on chronic renal failure Is this a current diagnosis for this admission?: YesSummary: Now CKD disease stage IV with a GFR of 26 (4) Diabetic nephropathy Is this a current diagnosis for this admission?: Yes (5) UTI (urinary tract infection) Is this a current diagnosis for this admission?: YesSummary: Patient did beta strep in the urine She was discharged on Keflex 250 mg twice a day for 5 days (6) Anemia in chronic kidney disease (CKD) Is this a current diagnosis for this admission?: YesSummary: Patient did receive Procrit 20,000 units subcutaneous Iron studies were normal - Additional Information Resuscitation Status: Full Code Home Medications: Atorvastatin Calcium [Lipitor 20 mg Tablet] 20 mg PO DAILY 12/30/16 Bupropion HCl [Wellbutrin Xl] 300 mg PO DAILY 12/30/16 Gabapentin [Neurontin 300 mg Capsule] 300 mg PO HSP PRN 12/30/16 Insulin Aspart [Novolog Insulin (Aspart) 100 unit/mL] 0 units SQ AC PRN Insulin Glargine,Hum.rec.anlog [Lantus Insulin 100 Unit/1 ml 10 ml] 20 units SQ QAM 12/30/16 Terazosin HCl [Hytrin] 5 mg PO DAILY 12/30/16 Tramadol HCl [Ultram 50 mg Tablet] 50 mg PO DAILYP PRN 12/30/16 Amlodipine Besylate [Norvasc 10 mg Tablet] 10 mg PO DAILY #30 tablet 01/05/17 Bumetanide [Bumex 1 mg Tablet] 0.5 mg PO DAILY #30 tablet 01/05/17 Cephalexin Monohydrate [Keflex 250 mg Capsule] 250 mg PO Q12 #10 capsule Insulin Glargine,Hum.rec.anlog [Lantus Insulin 100 Unit/mL] 20 unit SUBCUT DAILY #1 insuln.pen 01/05/17 Metoprolol Tartrate [Lopressor 25 mg Tablet] 12.5 mg PO Q12 #60 tablet 01/05/17 History of Present Illness Patient complains of: Shortness of breath lower extremity swelling History of Present Illness: KAYLIE RODRIGUEZ is a 31 year old female -[place] female with a past medical history significant for CK D stage III with a baseline creatinine around 1.8, dyslipidemia, hypertension who presents to the service with complaints of shortness of breath and lower extremity swelling. According to the patient her symptoms began 2 days ago when she started feeling short of breath. She noticed that her lower extremities seems larger than usual. In addition to this she noticed that her abdomen has also gotten larger. She says she usually has a bit of a tummy but never has looked as though she could be . She states she follows with a farm forestry and garden workers by the name of mack Mishra at [facility] and has been on several medications since establishing care. She doesn't feel that the medications are completely working. The patient is also a known diabetic. Her says that her blood sugars have been very uncontrolled as high as the upper 300s. Her last hemoglobin A1c was 10/07/2016 and was noted to be 7.5 according to her report. The patient also admits to having uncontrolled hypertension, But reports taking her medicine. She denies any orthopnea, PND, fevers, polyuria or polydipsia. In the emergency room the patient underwent a noncontrast CT of the chest which was negative. So underwent VQ scan which was negative. She did not receive any antihypertensives as her blood pressure came down on its own. Really it was 180/95 with a heart rate of 130. Repeat showed a blood pressure of 143/95 and a heart rate of 106. Her white blood cell count is noted to be elevated at 14.3 with a creatinine of 2.4. Again her baseline is around 1.8. She was also noted to have an elevated CK and alkaline phosphatase. VBG was pending. At the bedside the patient was feeling a little bit better by the time I saw her. She complains of weakness and generalized feeling of being tired and she notes that she occasionally has chills and was supposed to have her thyroid checked. Hospital Course Hospital Course: Patient was admitted with fluid overload and hypertension Renal function was worse than previous Unfortunately creatinine of 2.5 is likely to be her new baseline Patient was given Bumex and she diuresed Her blood pressure was controlled at time of discharge Physical Exam Vital Signs: Temp Pulse Resp BP Pulse Ox 98.6 F 83 16 127/62 H 100 01/05/17 15:46 01/05/17 15:46 01/05/17 15:46 01/05/17 15:46 01/05/17 15:46 Intake & Output 01/04/17 01/05/17 01/06/17 00:59 00:59 00:59 Intake Total 1421994 Output Total 2039 2500 Balance -615 -505 985 Weight 82.4 kg 82.4 kg General appearance: PRESENT: no acute distress, well-developed, well-nourished Head exam: PRESENT: atraumatic, normocephalic Eye exam: PRESENT: conjunctiva pink, EOMI, PERRLA. ABSENT: scleral icterus Ear exam: PRESENT: normal external ear exam Mouth exam: PRESENT: moist, tongue midline Neck exam: ABSENT: carotid bruit, JVD, lymphadenopathy, thyromegaly Respiratory exam: PRESENT: clear to auscultation eugenio. ABSENT: rales, rhonchi, wheezes Cardiovascular exam: PRESENT: RRR. ABSENT: diastolic murmur, rubs, systolic murmur Pulses: PRESENT: normal dorsalis pedis pul Vascular exam: PRESENT: normal capillary refill GI/Abdominal exam: PRESENT: normal bowel sounds, soft. ABSENT: distended, guarding, mass, organolmegaly, rebound, tenderness Rectal exam: PRESENT: deferred Extremities exam: PRESENT: full ROM. ABSENT: calf tenderness, clubbing, pedal edema Neurological exam: PRESENT: alert, awake, oriented to person, oriented to place , oriented to time, oriented to situation, CN II-XII grossly intact. ABSENT: motor sensory deficit Psychiatric exam: PRESENT: appropriate affect, normal mood. ABSENT: homicidal ideation, suicidal ideation Skin exam: PRESENT: dry, intact, warm. ABSENT: cyanosis, rash Results Laboratory Results: 01/05/17 06:17 01/05/17 06:17 01/03/17 01/05/17 01/05/17 05:21 06: 06:17 WBC 15.3 H RBC 2.81 L Hgb 8.2 L Hct 24.4 L MCV 87 MCH 29.2 MCHC 33.7 RDW 13.1 Plt Count 260 Seg Neutrophils % 66.1 Lymphocytes % 26.8 Monocytes % 5.9 Eosinophils % 1.0 Basophils % 0.2 Absolute Neutrophils 10.1 H Absolute Lymphocytes 4.1 Absolute Monocytes 0.9 Absolute Eosinophils 0.2 Absolute Basophils 0.0 Sodium 141.5 Potassium 4.7 Chloride 110 H Carbon Dioxide 24 Anion Gap 8 BUN 35 H Creatinine 2.59 H Est GFR ( Amer) 26 L Est GFR (Non-Af Amer) 22 L Glucose 113 H Calcium 8.1 L Magnesium 2.5 H Total Protein 4.4 L Albumin 1.9 L 12/31/16 12/31/16 04:15 04:15 Creatine Kinase 374 H NT-Pro-B Natriuret Pep 387 H Impressions: Chest X-Ray 12/30/16 12:14 IMPRESSION: NO ACUTE RADIOGRAPHIC FINDING IN THE CHEST. Chest CT 12/30/16 13:44 IMPRESSION: NO SIGNIFICANT FINDING ON NON-CONTRASTED CHEST CT. Lung Scan-VQ NM 12/30/16 15:04 IMPRESSION: NORMAL VENTILATION-PERFUSION LUNG SCAN. NEGATIVE FOR PULMONARY EMBOLI. Renal Ultrasound 01/02/17 00:00 IMPRESSION: UNREMARKABLE RENAL ULTRASOUND WITHOUT OBSTRUCTIVE UROPATHY. Plan Discharge Plan: Discharged home Follow up with Dr. Mishra farm forest[employer] and garden workers in 1-2 weeks Time Spent: Greater than 30 Minutes
[2017-01-05 17:10] VITALS: BP 129/78
[2017-01-05] MEDS ORDERED: CEPHALEXIN 250 MG CAPSULE PO SCH (22:00)
== END 2017-01-05 18:00 | disposition home or self-care (01) | DRG 682 ==
LOC: ER 11:47 → EH 15:48 → OBSVTOIN 16:52 → 5 18:55
PROC: 3E0F73Z Introduction of Anti-inflammatory into Respiratory Tract, Via Natural or Artificial Opening (ICD-10-PCS; principal; 2016-12-31)
DX: N17.9 Acute kidney failure, unspecified (principal); I50.31 Acute diastolic (congestive) heart failure; I13.0 Hypertensive heart and chronic kidney disease with heart failure and stage 1 through stage 4 chronic kidney disease, or unspecified chronic kidney disease; N39.0 Urinary tract infection, site not specified; N18.4 Chronic kidney disease, stage 4 (severe); E10.22 Type 1 diabetes mellitus with diabetic chronic kidney disease; E10.21 Type 1 diabetes mellitus with diabetic nephropathy; B95.1 Streptococcus, group B, as the cause of diseases classified elsewhere; D63.1 Anemia in chronic kidney disease; E78.5 Hyperlipidemia, unspecified; E10.319 Type 1 diabetes mellitus with unspecified diabetic retinopathy without macular edema; E83.41 Hypermagnesemia; F32.9 Major depressive disorder, single episode, unspecified; Z79.4 Long term (current) use of insulin; Z79.899 Other long term (current) drug therapy; Z88.8 Allergy status to other drugs, medicaments and biological substances; Z83.3 Family history of diabetes mellitus; Z80.3 Family history of malignant neoplasm of breast; Z82.49 Family history of ischemic heart disease and other diseases of the circulatory system
CPT/HCPCS: 36415; 71010; 71250; 76775; 78582; 80048; 80053; 80076; 81001; 82272; 82550; 82553; 82570; 82607; 82728; 82746; 82803; 82962; 83036; 83540; 83550; 83735; 83880; 83970; 84100; 84156; 84300; 84439; 84443; 84466; 84481; 84484; 84703; 85025; 85045; 85652; 86038; 86140; 86320; 87040; 87086; 87088; 93005; 93010; 93306; 94640; 96372; 99285; A9540; A9567; J1650; J1815; J1940; J2405; J3490; J7620; Q4081; Q9969

== ENCOUNTER 2017-05-31 20:54 | Emergency (ER) | payer MEDICAID ==
[2017-05-31] MEDS ORDERED: NORMAL SALINE 1000 ML 1,000 ML IV ONE (21:14)
[2017-05-31 21:45] LABS: ABSOLUTE EOSINOPHILS # (AUTO) 0.1 10^3/uL (0.0-0.6); ABSOLUTE LYMPHOCYTES (AUTO) 2.8 10^3/uL (0.5-4.7); ABSOLUTE MONOCYTES (AUTO) 0.5 10^3/uL (0.1-1.4); ABSOLUTE NEUT (AUTO) 8.2 10^3/uL (1.7-8.2); BASOPHILS % (AUTO) 0.4 % (0-2); EOSINOPHILS % (AUTO) 0.6 % (0-6); HEMATOCRIT 28.4 % (36.0-47.0); HEMOGLOBIN 9.4 g/dL (12.0-15.5); HGB HCT DIFFERENCE -0.2; LYMPHOCYTES % (AUTO) 24.3 % (13-45); MEAN CORPUSCULAR HEMOGLOBIN 28.8 pg (27.0-33.4); MEAN CORPUSCULAR HGB CONC 33.2 g/dL (32.0-36.0); MEAN CORPUSCULAR VOLUME 87 fl (80-97); MONOCYTES % (AUTO) 4.5 % (3-13); RED BLOOD COUNT 3.27 10^6/uL (3.72-5.28); RED CELL DISTRIBUTION WIDTH 12.6 % (11.5-14.0); SEGMENTED NEUTROPHILS % (AUTO) 70.2 % (42-78); WHITE BLOOD COUNT 11.7 10^3/uL (4.0-10.5)
[2017-05-31 21:52] LABS: APPEARANCE,URINE SLIGHTLY-CLOUDY; BILIRUBIN,URINE NEGATIVE (NEGATIVE); GLUCOSE, URINE >=500 mg/dL (NEGATIVE); KETONES,URINE NEGATIVE (NEGATIVE); LEUKOCYTE ESTERASE,URINE MODERATE (NEGATIVE); NITRITE,URINE NEGATIVE (NEGATIVE); PROTEIN,URINE >=500 mg/dL (NEGATIVE); URINE SPECIFIC GRAVITY 1.013; UROBILINOGEN,URINE NEGATIVE mg/dL (<2.0)
[2017-05-31 21:58] LABS: ALANINE AMINOTRANSFERASE 17 U/L (9-52); ALKALINE PHOSPHATASE 184 U/L (38-126); ANION GAP 9 (5-19); ASPARTATE AMINO TRANSFERASE 19 U/L (14-36); BILIRUBIN,DIRECT 0.3 mg/dL (0.0-0.4); BILIRUBIN,TOTAL 0.3 mg/dL (0.2-1.3); BLOOD UREA NITROGEN 38 mg/dL (7-20); CALCIUM 8.5 mg/dL (8.4-10.2); CARBON DIOXIDE 23 mmol/L (22-30); CHLORIDE 97 mmol/L (98-107); CREATININE RESULT 3.07 mg/dL (0.52-1.25); POTASSIUM 4.4 mmol/L (3.6-5.0); SODIUM 128.7 mmol/L (137-145)
[2017-05-31] MEDS ORDERED: LORAZEPAM INJ 2 MG/1 ML VIAL IV ONE (22:04)
[2017-05-31] MEDS ORDERED: NORMAL SALINE 1000 ML 500 ML IV ONE ×2 (22:04→23:17)
--- NOTE | 2017-05-31 22:06 | ER Document Report ---
ED General - General Chief Complaint: Abnormal Lab Results Stated Complaint: IRREGULAR LABS Time Seen by Provider: 05/31/17 21:53 Notes: Patient is a 31-year-old female that comes emergency department for chief complaint of being told her blood sugar was high and also feeling rapid heartbeat. She states she feels anxious and like she needs anxiety medication, she did not take her Xanax earlier today. She denies feeling dizzy, vomiting, she denies any locations of pain including chest pain. She denies shortness of breath. She has a complicated medical history including insulin-dependent type 2 diabetes, diastolic heart failure, hypertension, tachycardia which she takes metoprolol for, and she is currently consulting with [facility] for possible kidney transplant secondary renal failure. She is not on dialysis. TRAVEL OUTSIDE OF THE [place] IN LAST 30 DAYS: No - Related Data Allergies/Adverse Reactions: No Known Allergies Allergy (Unverified 05/31/17 23:14) Home Medications: Current Home Medications Alprazolam [Alprazolam] 1 tab PO BID 05/31/17 [History] Aspirin 1 tab PO DAILY 05/31/17 [History] Bumetanide [Bumex 1 mg Tablet] 3 mg PO BID 05/31/17 [History] Fluoxetine HCl [Fluoxetine HCl] 1 tab PO DAILY 05/31/17 [History] Hydralazine HCl 25 mg PO TID 05/31/17 [History] Hydroxyzine HCl [Hydroxyzine HCl] 1 tab PO TID 05/31/17 [History] Isosorbide Dinitrate [Isordil Titradose 10 Mg Tablet] 0.5 mg PO TID 05/31/17 [ History] Loratadine [Loratadine] 1 tab PO DAILY 05/31/17 [History] Valsartan [Valsartan] 1 tab PO DAILY 05/31/17 [History] Past Medical History - General Information source: Patient - Social History Smoking Status: Never Smoker Frequency of alcohol use: None Drug Abuse: None Lives with: Family Family History: DM, Hypertension Patient has suicidal ideation: No Patient has homicidal ideation: No - Past Medical History Cardiac Medical History: Reports: Hx Congestive Heart Failure, Hx Hypercholesterolemia, Hx Hypertension, Hx Heart Murmur Endocrine Medical History: Reports: Hx Diabetes Mellitus Type 2 Renal/ Medical History: Denies: Hx Peritoneal Dialysis Psychiatric Medical History: Reports: Hx Depression Past Surgical History: Reports: Hx Section, Other - D&C once - Immunizations Immunizations up to date: Yes Hx Diphtheria, Pertussis, Tetanus Vaccination: Yes Hx Pneumococcal Vaccination: 06/13/14 Review of Systems - Review of Systems Constitutional: See HPI EENT: No symptoms reported Cardiovascular: See HPI Respiratory: No symptoms reported Gastrointestinal: No symptoms reported Genitourinary: No symptoms reported Female Genitourinary: No symptoms reported Musculoskeletal: No symptoms reported Skin: No symptoms reported Hematologic/Lymphatic: No symptoms reported Neurological/Psychological: No symptoms reported Physical Exam - Vital signs Vitals: Temp Pulse Resp BP Pulse Ox 98.8 F 132 H 16 179/93 H 98 05/31/17 21:12 05/31/17 21:12 05/31/17 21:12 05/31/17 21:12 05/31/17 21:12 Interpretation: Normal - General General appearance: Appears well, Alert In distress: None - HEENT Head: Normocephalic, Atraumatic Eyes: Normal Pupils: PERRL - Respiratory Respiratory status: No respiratory distress Chest status: Nontender Breath sounds: Normal Chest palpation: Normal - Cardiovascular Rhythm: Regular, Tachycardia Heart sounds: Normal auscultation, S1 appreciated, S2 appreciated Murmur: No - Abdominal Inspection: Normal Distension: No distension Bowel sounds: Normal Tenderness: Nontender. No: Tender, Guarding Organomegaly: No organomegaly - Back Back: Normal, Nontender. No: Tender - Extremities General upper extremity: Normal inspection, Nontender, Normal color, Normal ROM , Normal temperature General lower extremity: Normal inspection, Nontender, Normal color, Normal ROM , Normal temperature, Normal weight bearing. 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 Chemistry shows hyperglycemia in the 600s, bicarbonate and anion gap are normal. Sodium is somewhat low. Patient was given 2 500 cc boluses with about 45 minutes between them. Patient is reporting that she is feeling swelling and discomfort in her lower extremities and hands although this is not obvious on examination, she has no pitting edema or difficulty with ambulation. She appears very comfortable. Clear lungs on examination, no hypoxia, no tachypnea or complaints of shortness of breath. Creatinine is elevated at 3, this is somewhat higher than previously. Vital signs normalized after treatments including resolution of tachycardia. Patient is sleeping and easily aroused on reexamination. Patient well-appearing initially and on reexamination. I discussed patient with Dr. Adams and I discussed results with patient in detail. Treated hyperglycemia, treated with IV fluids, I did also give a small dose of Lasix afterwards because of patient's symptoms, patient states she has good and close follow-up, can obtain follow-up within the next 1-2 days, states she is ready to leave. Discussed return precautions including swelling of the extremities, vomiting, blood sugars that she cannot get under control, or any other concerning symptoms. Patient and family members state satisfaction and agreement. - Vital Signs Vital signs: Temp Pulse Resp BP Pulse Ox 98.8 F 132 H 0 L 131/70 H 99 05/31/17 21:12 05/31/17 21:12 06/01/17 01:01 06/01/17 01:01 06/01/17 01:01 - Laboratory Result Diagrams: 05/31/17 21:25 05/31/17 21:25 Laboratory results interpreted by me: 05/31/17 05/31/17 05/31/17 21:25 21:25 21:25 WBC 11.7 H RBC 3.27 L Hgb 9.4 L Hct 28.4 L Sodium 128.7 L Chloride 97 L BUN 38 H Creatinine 3.07 H Est GFR ( Amer) 21 L Est GFR (Non-Af Amer) 18 L Glucose 602 H* POC Glucose Alkaline Phosphatase 184 H Total Protein 6.0 L Albumin 3.0 L Urine Protein >=500 H Urine Glucose (UA) >=500 H Ur Leukocyte Esterase MODERATE H 05/31/17 06/01/17 23:21 00:48 WBC RBC Hgb Hct Sodium Chloride BUN Creatinine Est GFR ( Amer) Est GFR (Non-Af Amer) Glucose POC Glucose 441 H* 291 H Alkaline Phosphatase Total Protein Albumin Urine Protein Urine Glucose (UA) Ur Leukocyte Esterase Discharge - Discharge Clinical Impression: Hyperglycemia, CKD (chronic kidney disease) stage 4, GFR 15-29 ml/min Condition: Stable Disposition: HOME, SELF-CARE Additional Instructions: Please follow-up in the next 1-2 days with your primary care provider for a repeat of your labs and additional management. Continue your current medication. Please return the emergency department for any concerning or worsening symptoms including vomiting, dizziness, shortness of breath, or any other concerning symptoms. Referrals: AMANDA CAMPOS MD [Primary Care Provider] - Follow up as needed
[2017-05-31 22:08] LABS: GLUCOSE 602 mg/dL (75-110)
[2017-05-31] MEDS ORDERED: INSULIN REG, HUMAN 100 UNIT/ML 3 ML VIAL (PYX) SUBCUT ONE (22:28)
[2017-06-01] MEDS ORDERED: FUROSEMIDE INJ/PF 20 MG/2 ML SDV IV ONE (01:05)
[2017-06-01 01:11] VITALS: BP 131/70
== END 2017-06-01 01:21 | disposition home or self-care (01) ==
LOC: ER 20:54
DX: E11.65 Type 2 diabetes mellitus with hyperglycemia (principal); I12.9 Hypertensive chronic kidney disease with stage 1 through stage 4 chronic kidney disease, or unspecified chronic kidney disease; E11.22 Type 2 diabetes mellitus with diabetic chronic kidney disease; N18.4 Chronic kidney disease, stage 4 (severe); Z79.4 Long term (current) use of insulin; F41.9 Anxiety disorder, unspecified; R00.0 Tachycardia, unspecified; Z79.899 Other long term (current) drug therapy; D72.829 Elevated white blood cell count, unspecified; D64.9 Anemia, unspecified
CPT/HCPCS: 99283; 96361; 96374; 96375; 36415; 87086; 82962; 85025; 81025; 80053; 81001; J1940; J2060; J1815; J7030 ×2

== ENCOUNTER → 2017-06-01 | Outpatient (CLI) | payer MEDICAID ==
[2017-06-01 16:35] LABS: AMORPHOUS SEDIMENT,URINE TRACE /HPF; APPEARANCE,URINE CLOUDY; BILIRUBIN,URINE NEGATIVE (NEGATIVE); GLUCOSE, URINE >=500 mg/dL (NEGATIVE); KETONES,URINE NEGATIVE (NEGATIVE); LEUKOCYTE ESTERASE,URINE MODERATE (NEGATIVE); NITRITE,URINE NEGATIVE (NEGATIVE); PROTEIN,URINE >=500 mg/dL (NEGATIVE); URINE SPECIFIC GRAVITY 1.013; UROBILINOGEN,URINE NEGATIVE mg/dL (<2.0)
== END ==
LOC: LAB 16:14
PROVIDERS: ATTEND Internal Medicine Hypertension Specialist
DX: N18.4 Chronic kidney disease, stage 4 (severe) (principal)
CPT/HCPCS: 81001; 87086; 87088

== ENCOUNTER 2017-11-16 16:02 | Emergency (ER) | payer MEDICAID ==
[2017-11-16] MEDS ORDERED: FENTANYL CITRATE INJ/PF 100 MCG/2 ML AMPUL IV ONE ×2 (16:47→17:53)
[2017-11-16] MEDS ORDERED: NORMAL SALINE 1000 ML 1,000 ML IV ONE (16:48)
--- NOTE | 2017-11-16 16:48 | ER Document Report ---
ED Medical Screen (RME) - General Chief Complaint: Abdominal Pain Stated Complaint: LT SIDE STOMACH PAIN Time Seen by Provider: 11/16/17 16:41 Notes: RME DISCLOSURE I have seen this patient as part of a Rapid Medical Evaluation and, if applicable, placed any initially appropriate orders. The patient will be seen and fully evaluated, including a full history and physical exam, by a provider ( in Main ED or Fast Track) when a room becomes available. 32-year-old female past medical history CHF CKD here with complaints of left- sided abdominal pain ongoing past few days. Pain is worse with movement. Pain is improved if she gets in a position. She has tried tramadol with minimal relief. EXAM Moderately tender epigastrium left upper/lower quadrant and suprapubic region Tachycardic TRAVEL OUTSIDE OF THE [place] IN LAST 30 DAYS: No - Related Data Allergies/Adverse Reactions: No Known Allergies Allergy (Unverified 05/31/17 23:14) Past Medical History - Past Medical History Cardiac Medical History: Reports: Hx Congestive Heart Failure, Hx Hypercholesterolemia, Hx Hypertension, Hx Heart Murmur Endocrine Medical History: Reports: Hx Diabetes Mellitus Type 1 - Diagnosis, Hx Diabetes Mellitus Type 2 Renal/ Medical History: Denies: Hx Peritoneal Dialysis Psychiatric Medical History: Reports: Hx Depression Past Surgical History: Reports: Hx Section, Other - D&C once - Immunizations Immunizations up to date: Yes Hx Diphtheria, Pertussis, Tetanus Vaccination: Yes Physical Exam - Vital signs Vitals: Temp Pulse Resp BP Pulse Ox 99.1 F 135 H 16 150/86 H 98 11/16/17 16:29 11/16/17 16:29 11/16/17 16:29 11/16/17 16:29 11/16/17 16:29 Course - Vital Signs Vital signs: Temp Pulse Resp BP Pulse Ox 99.1 F 135 H 16 150/86 H 98 11/16/17 16:29 11/16/17 16:29 11/16/17 16:29 11/16/17 16:29 11/16/17 16:29
[2017-11-16 17:24] LABS: ABSOLUTE EOSINOPHILS # (AUTO) 0.1 10^3/uL (0.0-0.6); ABSOLUTE MONOCYTES (AUTO) 0.4 10^3/uL (0.1-1.4); ABSOLUTE NEUT (AUTO) 6.2 10^3/uL (1.7-8.2); BASOPHILS % (AUTO) 0.4 % (0-2); EOSINOPHILS % (AUTO) 0.7 % (0-6); HEMATOCRIT 27.3 % (36.0-47.0); HEMOGLOBIN 9.2 g/dL (12.0-15.5); LYMPHOCYTES % (AUTO) 22.7 % (13-45); MEAN CORPUSCULAR HEMOGLOBIN 28.8 pg (27.0-33.4); MEAN CORPUSCULAR HGB CONC 33.7 g/dL (32.0-36.0); MEAN CORPUSCULAR VOLUME 85 fl (80-97); MONOCYTES % (AUTO) 4.5 % (3-13); PLATELET COUNT 237 10^3/uL (150-450); RED CELL DISTRIBUTION WIDTH 12.1 % (11.5-14.0); SEGMENTED NEUTROPHILS % (AUTO) 71.7 % (42-78); TOTAL CELLS COUNTED % (AUTO) 100 %; WHITE BLOOD COUNT 8.7 10^3/uL (4.0-10.5)
[2017-11-16 17:37] LABS: ALANINE AMINOTRANSFERASE 20 U/L (9-52); ALBUMIN 2.7 g/dL (3.5-5.0); ALKALINE PHOSPHATASE 109 U/L (38-126); ANION GAP 6 (5-19); ASPARTATE AMINO TRANSFERASE 19 U/L (14-36); BILIRUBIN,DIRECT 0.3 mg/dL (0.0-0.4); BILIRUBIN,TOTAL 0.3 mg/dL (0.2-1.3); BLOOD UREA NITROGEN 31 mg/dL (7-20); CARBON DIOXIDE 20 mmol/L (22-30); CHLORIDE 111 mmol/L (98-107); GLUCOSE 292 mg/dL (75-110); POTASSIUM 4.3 mmol/L (3.6-5.0); TOTAL PROTEIN 5.6 g/dL (6.3-8.2)
--- NOTE | 2017-11-16 18:23 | ER Document Report ---
ED GI/ - General Mode of Arrival: Ambulatory Information source: Patient TRAVEL OUTSIDE OF THE [place] IN LAST 30 DAYS: No <YAMILE BEDOLLA - Last Filed: 11/16/17 18:24> <STACIA SIDDIQI - Last Filed: 11/16/17 20:27> - General Chief Complaint: Abdominal Pain Stated Complaint: LT SIDE STOMACH PAIN Time Seen by Provider: 11/16/17 16:41 Notes: Patient is a 32-year-old female with history of diabetes, congestive heart failure, chronic kidney disease not on dialysis who presents to the ER today for left upper quadrant abdominal pain. Patient states that my "whole left side hurts." She states it has been going on for 3 days. She admits to some nausea but denies any vomiting or diarrhea. She denies any history of pancreatitis, she denies drinking any alcohol at all anytime recently. She states "I may have had a sip in the last year." (YAMILE BEDOLLA) - Related Data Allergies/Adverse Reactions: No Known Allergies Allergy (Unverified 05/31/17 23:14) Past Medical History - General Information source: Patient - Social History Smoking Status: Never Smoker Family History: DM, Hypertension Patient has suicidal ideation: No Patient has homicidal ideation: No - Past Medical History Cardiac Medical History: Reports: Hx Congestive Heart Failure, Hx Hypercholesterolemia, Hx Hypertension, Hx Heart Murmur Endocrine Medical History: Reports: Hx Diabetes Mellitus Type 1 - Diagnosis, Hx Diabetes Mellitus Type 2 Renal/ Medical History: Denies: Hx Peritoneal Dialysis Psychiatric Medical History: Reports: Hx Depression Past Surgical History: Reports: Hx Section, Other - D&C once - Immunizations Immunizations up to date: Yes Hx Diphtheria, Pertussis, Tetanus Vaccination: Yes Hx Pneumococcal Vaccination: 06/13/14 <YAMILE BEDOLLA - Last Filed: 11/16/17 18:24> Review of Systems - Review of Systems Constitutional: No symptoms reported EENT: No symptoms reported Cardiovascular: No symptoms reported Respiratory: No symptoms reported Gastrointestinal: See HPI Genitourinary: No symptoms reported Female Genitourinary: No symptoms reported Musculoskeletal: No symptoms reported Skin: No symptoms reported Hematologic/Lymphatic: No symptoms reported Neurological/Psychological: No symptoms reported <YAMILE BEDOLLA - Last Filed: 11/16/17 18:24> Physical Exam <YAMILE BEDOLLA - Last Filed: 11/16/17 18:24> <STACIA SIDDIQI - Last Filed: 11/16/17 20:27> - Vital signs Vitals: Temp Pulse Resp BP Pulse Ox 99.1 F 135 H 16 150/86 H 98 11/16/17 16:29 11/16/17 16:29 11/16/17 16:29 11/16/17 16:29 11/16/17 16:29 - Notes Notes: PHYSICAL EXAMINATION: GENERAL: Uncomfortable, but in no acute distress. HEAD: Atraumatic, normocephalic. EYES: Pupils equal round and reactive to light, extraocular movements intact, sclera anicteric, conjunctiva are normal. NECK: Normal range of motion, supple without lymphadenopathy LUNGS: CTAB and equal. No wheezes rales or rhonchi. HEART: Regular rate and rhythm without murmurs ABDOMEN: Soft, epigastric, left upper quadrant, left lower quadrant tenderness. No guarding, no rebound BACK: no vertebral tenderness, normal ROM GI/: no CVA tenderness EXTREMITIES: Normal range of motion, no pitting edema. No cyanosis. NEUROLOGICAL: Cranial nerves grossly intact. Normal sensory/motor exams. PSYCH: Normal mood, normal affect. SKIN: Warm, Dry, normal turgor, no rashes or lesions noted (YAMILE BEDOLLA) Course - Laboratory Result Diagrams: 11/16/17 17:05 11/16/17 17:05 <YAMILE BEDOLLA - Last Filed: 11/16/17 18:24> - Laboratory Result Diagrams: 11/16/17 17:05 11/16/17 17:05 - Diagnostic Test Radiology reviewed: Image reviewed, Reports reviewed - No acute abnormality of the abdomen and pelvis. <STACIA SIDDIQI - Last Filed: 11/16/17 20:27> - Re-evaluation Re-evalutation: 11/16/17 18:25 patient's creatinine is 4.8, much worse than in May which is the last set of labs I have to compare it to when it was 3.07. Lipase is actually normal today. Awaiting CAT scan at this time. 11/16/17 18:26 (YAMILE BEDOLLA) 11/16/17 20:25 Patient is nontoxic appearing at this time with stable vitals. CT of the abdomen and pelvis shows no acute abnormality identified. This point the patient can be discharged home with instructions to follow-up with her primary care doctors at the next available appointment. Follow-up sooner for worsening pain, high fever, persistent vomiting, or for any further concerns. Patient has tramadol which she can take as needed for pain at home. The patient is noted to have elevated blood pressure during today's emergency department visit. The patient was informed of this finding. The patient was instructed that this may be related to pre-hypertension and requires further evaluation with a primary care provider. The patient has no hypertensive symptoms at this time. 11/16/17 20:27 (STACIA SIDDIQI) - Vital Signs Vital signs: Temp Pulse Resp BP Pulse Ox 99.1 F 135 H 22 H 130/85 H 98 11/16/17 16:29 11/16/17 16:29 11/16/17 20:01 11/16/17 20:00 11/16/17 20:01 - Laboratory Laboratory results interpreted by me: 11/16/17 11/16/17 17:05 17:05 RBC 3.20 L Hgb 9.2 L Hct 27.3 L Chloride 111 H Carbon Dioxide 20 L BUN 31 H Creatinine 4.80 H Est GFR ( Amer) 13 L Est GFR (Non-Af Amer) 11 L Glucose 292 H Calcium 8.0 L Total Protein 5.6 L Albumin 2.7 L Discharge <YAMILE BEDOLLA - Last Filed: 11/16/17 18:24> <STACIA SIDDIQI - Last Filed: 11/16/17 20:27> - Discharge Clinical Impression: Abdominal pain Qualifiers: Abdominal location: left upper quadrant Qualified Code(s): R10.12 - Left upper quadrant pain Chronic renal failure Qualifiers: Chronic kidney disease stage: unspecified stage Qualified Code(s): N18.9 - Chronic kidney disease, unspecified Condition: Stable Disposition: HOME, SELF-CARE Instructions: Abdominal Pain ([facility]) Additional Instructions: Follow-up with your doctors at the next available appointment. Follow-up sooner for increasing pain, high fever, persistent vomiting, or for any further concerns. Your blood pressure was elevated during today's visit. Have this rechecked with your doctor. Forms: Elevated Blood Pressure, Smoking Cessation Education Referrals: YAMILE LAURA PA-C [Primary Care Provider] - Follow up as needed
--- NOTE | 2017-11-16 20:20 | RADIOLOGY REPORT (SQ) ---
EXAM DESCRIPTION: CT ABD/PELVIS NO ORAL OR IV COMPLETED DATE/TIME: 11/16/2017 7:08 pm REASON FOR STUDY: luq pain COMPARISON: None. TECHNIQUE: CT scan of the abdomen and pelvis performed without intravenous or oral contrast. Images reviewed with lung, soft tissue, and bone windows. Reconstructed coronal and sagittal MPR images revi ewed. All images stored on PACS. All CT scanners at this facility use dose modulation, iterative reconstruction, and/or weight based d osing when appropriate to reduce radiation dose to as low as reasonably achievable (ALARA). [facility]: Dose Right [facility]: CareDose [facility]: Dose Right [facility]: Teradose 4D [facility]: Smart 2heuresavant RADIATION DOSE: CT Rad equipment meets quality standard of care and radiation dose reduction techniq ues were employed. CTDIvol: 7.2 mGy. DLP: 368 mGy-cm.mGy. LIMITATIONS: None. FINDINGS: LOWER CHEST: No significant findings. No nodules or infiltrates. NON-CONTRASTED LIVER, SPLEEN, ADRENALS: Evaluation limited by lack of IV contrast. No identified sign ificant masses. PANCREAS: No masses. No peripancreatic inflammatory changes. GALLBLADDER: No identified stones by CT criteria. No inflammatory changes to suggest cholecystitis. RIGHT KIDNEY AND URETER: No suspicious masses. Assessment limited by lack of IV contrast. No signif icant calcifications. No hydronephrosis or hydroureter. LEFT KIDNEY AND URETER: No suspicious masses. Assessment limited by lack of IV contrast. No signifi cant calcifications. No hydronephrosis or hydroureter. AORTA AND RETROPERITONEUM: No aneurysm. No retroperitoneal masses or adenopathy. BOWEL AND PERITONEAL CAVITY: There is high density material in the colon, which has the appearance of contrast. No obvious masses or inflammatory changes. No free fluid. APPENDIX: Not visualized. PELVIS, BLADDER, AND ABDOMINAL WALL:IUD in the uterus. No abnormal masses. No free fluid. Bladder no rmal. BONES: No significant findings. OTHER: No other significant finding. IMPRESSION: NO SIGNIFICANT OR ACUTE PROCESS IN THE ABDOMEN OR PELVIS. THERE DOES APPEAR TO BE CONTR AST MATERIAL IN THE COLON, WHICH WAS NOT ADMINISTERED AT THIS FACILITY. RECOMMEND CORRELATION WITH A [place] RECENT DIAGNOSTIC STUDIES DONE AT ANOTHER FACILITY. COMMENT: Quality ID # [id number]: Final reports with documentation of one or more dose reduction techniques (e.g., Automated exposure control, adjustment of the mA and/or kV according to patient size, use of iterative reconstruction technique) TECHNICAL DOCUMENTATION: JOB ID: [id number] [email or web address]- All Rights Reserved Reading location - IP/workstation name: [email or web address]
[2017-11-16 20:45] LABS: APPEARANCE,URINE CLOUDY; BILIRUBIN,URINE NEGATIVE (NEGATIVE); COLOR,URINE YELLOW; GLUCOSE, URINE >=500 mg/dL (NEGATIVE); KETONES,URINE NEGATIVE (NEGATIVE); LEUKOCYTE ESTERASE,URINE NEGATIVE (NEGATIVE); NITRITE,URINE NEGATIVE (NEGATIVE); PROTEIN,URINE >=500 mg/dL (NEGATIVE); URINE SPECIFIC GRAVITY 1.014; UROBILINOGEN,URINE NEGATIVE mg/dL (<2.0)
[2017-11-16 20:52] VITALS: BP 147/89
== END 2017-11-16 20:52 | disposition home or self-care (01) ==
LOC: ER 16:02
DX: R10.12 Left upper quadrant pain (principal); R11.0 Nausea; I50.9 Heart failure, unspecified; E11.22 Type 2 diabetes mellitus with diabetic chronic kidney disease; N18.9 Chronic kidney disease, unspecified
CPT/HCPCS: 96376; 99284; 96361; 96374; 36415; 83690; 84703; 85025; 80053; 81001; 74176; J3010; J7030

== ENCOUNTER → 2017-12-27 | Outpatient (CLI) | payer MEDICAID ==
--- NOTE | 2017-12-27 14:43 | RADIOLOGY REPORT (SQ) ---
EXAM DESCRIPTION: CHEST PA/LATERAL COMPLETED DATE/TIME: 12/27/2017 2:33 pm REASON FOR STUDY: UNSPECIFIED DIASTOLIC (CONGESTIVE) HEART FAILURE COMPARISON: 12/30/2016. EXAM PARAMETERS: NUMBER OF VIEWS: two views TECHNIQUE: Digital Frontal and Lateral radiographic views of the chest acquired. RADIATION DOSE: NA LIMITATIONS: none FINDINGS: LUNGS AND PLEURA: No opacities, masses or pneumothorax. No pleural effusion. MEDIASTINUM AND HILAR STRUCTURES: No masses or contour abnormalities. HEART AND VASCULAR STRUCTURES: Interval development of mild cardiomegaly. No evidence for failure. BONES: No acute findings. HARDWARE: None in the chest. OTHER: No other significant finding. IMPRESSION: INTERVAL DEVELOPMENT OF MILD CARDIOMEGALY. NO OTHER SIGNIFICANT RADIOGRAPHIC FINDING IN THE CHEST. TECHNICAL DOCUMENTATION: JOB ID: [id number] [employer]- All Rights Reserved Reading location - IP/workstation name: [email or web address]
--- NOTE | 2017-12-27 15:13 | EKG REPORT ---
SEVERITY:- BORDERLINE ECG - SINUS RHYTHM BORDERLINE T WAVE ABNORMALITIES : Confirmed by: Denice Decker 27-Dec-2017 15:12:33
== END ==
LOC: OD 14:10
PROVIDERS: ATTEND Physician Assistant
DX: I50.30 Unspecified diastolic (congestive) heart failure (principal)
CPT/HCPCS: 71046; 93005; 93010

== ENCOUNTER → 2019-05-23 | Outpatient (CLI) | payer MEDICARE, MEDICAID ==
[2019-05-23 10:47] LABS: ABSOLUTE MONOCYTES (AUTO) 0.3 10^3/uL (0.1-1.4); ABSOLUTE NEUT (AUTO) 3.7 10^3/uL (1.7-8.2); BASOPHILS % (AUTO) 0.3 % (0-2); EOSINOPHILS % (AUTO) 0.6 % (0-6); HEMATOCRIT 28.5 % (36.0-47.0); HEMOGLOBIN 9.4 g/dL (12.0-15.5); LYMPHOCYTES % (AUTO) 19.5 % (13-45); MEAN CORPUSCULAR HEMOGLOBIN 30.7 pg (27.0-33.4); MEAN CORPUSCULAR HGB CONC 32.9 g/dL (32.0-36.0); MEAN CORPUSCULAR VOLUME 93 fl (80-97); MONOCYTES % (AUTO) 6.5 % (3-13); PLATELET COUNT 225 10^3/uL (150-450); RED BLOOD COUNT 3.06 10^6/uL (3.72-5.28); RED CELL DISTRIBUTION WIDTH 15.5 % (11.5-14.0); SEGMENTED NEUTROPHILS % (AUTO) 73.1 % (42-78); TOTAL CELLS COUNTED % (AUTO) 100 %; WHITE BLOOD COUNT 5.1 10^3/uL (4.0-10.5)
[2019-05-23 11:10] LABS: AMYLASE 68 U/L (30-110); ANION GAP 6 (5-19); BLOOD UREA NITROGEN 12 mg/dL (7-20); CALCIUM 9.2 mg/dL (8.4-10.2); CARBON DIOXIDE 26 mmol/L (22-30); CHLORIDE 109 mmol/L (98-107); GLUCOSE 83 mg/dL (75-110); PHOSPHORUS 2.1 mg/dL (2.5-4.5); POTASSIUM 4.2 mmol/L (3.6-5.0)
[2019-05-23 15:24] LABS: APPEARANCE,URINE CLEAR; BILIRUBIN,URINE NEGATIVE (NEGATIVE); COLOR,URINE YELLOW; GLUCOSE, URINE NEGATIVE (NEGATIVE); KETONES,URINE NEGATIVE (NEGATIVE); LEUKOCYTE ESTERASE,URINE NEGATIVE (NEGATIVE); NITRITE,URINE NEGATIVE (NEGATIVE); PROTEIN,URINE NEGATIVE (NEGATIVE); URINE SPECIFIC GRAVITY 1.014; UROBILINOGEN,URINE NEGATIVE mg/dL (<2.0)
== END ==
LOC: OD 10:11
PROVIDERS: ATTEND Surgery
DX: N18.9 Chronic kidney disease, unspecified (principal); Z94.0 Kidney transplant status
CPT/HCPCS: 36415; 80048; 80197; 81001; 82150; 83690; 83735; 84100; 85025

== ENCOUNTER 2019-07-28 16:15 | Emergency (ER) | payer MEDICARE, MEDICAID ==
[2019-07-28 16:21] VITALS: BP 176/88
[2019-07-28] MEDS ORDERED: LIDOCAINE 2% VISCOUS SOLN 20 ML UDCUP PO ONE (16:42)
[2019-07-28] MEDS ORDERED: HYDROCODONE/ACETAMINOPHEN 5-325 MG (6 TAB/ER DISP) PO PRN (17:14)
--- NOTE | 2019-07-28 17:18 | ER Document Report ---
HPI - HPI Time Seen by Provider: 07/28/19 17:09 Pain Level: 5 Notes: Patient is a 34-year-old female who presents to the ED complaining of left/Right upper dental pain #2/15 x several days. She has not noticed any obvious abscess or purulent discharge. Patient states that she is still able to eat and drink, but does have a decreased p.o. intake due to the pain. She has tried some [id number] meds with minimal relief. She was seen by the dentist yesterday and they told her she needs to have teeth taken out, but did perform a filling. He did not send her home on any medications. Pt states that she has been to multiple medical facilities today, but cannot get in with her PCM or get a script from her dentist until Wednesday. Denies any headache, fever, head injury, neck pain, hoarseness, drooling, URI, sore throat, chest pain, palpitations, syncope, cough, shortness of breath, wheeze, dyspnea, abdominal pain, nausea/vomiting/diarrhea, urinary retention, dysuria, hematuria, or rash. - ROS Systems Reviewed and Negative: Yes All other systems reviewed and negative - REPRODUCTIVE Reproductive: DENIES: : Past Medical History - Social History Smoking Status: Unknown if Ever Smoked Chew tobacco use (# tins/day): No Frequency of alcohol use: None Drug Abuse: None Family History: DM, Hypertension Patient has suicidal ideation: No Patient has homicidal ideation: No - Past Medical History Cardiac Medical History: Reports: Hx Congestive Heart Failure, Hx Hypercholesterolemia, Hx Hypertension, Hx Heart Murmur Endocrine Medical History: Reports: Hx Diabetes Mellitus Type 1 - Diagnosis, Hx Diabetes Mellitus Type 2 Renal/ Medical History: Denies: Hx Peritoneal Dialysis Musculoskeletal Medical History: Denies Hx Systemic Lupus Erythematosus Psychiatric Medical History: Reports: Hx Depression Past Surgical History: Reports: Hx Section, Other - D&C once - Immunizations Immunizations up to date: Yes Hx Diphtheria, Pertussis, Tetanus Vaccination: Yes Hx Pneumococcal Vaccination: 06/13/14 Vertical Provider Document - CONSTITUTIONAL Agree With Documented VS: Yes Notes: PHYSICAL EXAMINATION: GENERAL: Well-appearing, well-nourished and in no acute distress. HEAD: Atraumatic, normocephalic. EYES: Pupils equal round and reactive to light, extraocular movements intact, sclera anicteric, conjunctiva are normal. ENT: EAC clear b/l. TM's intact b/l without erythema, fluid, or perforation. Nares patent and without discharge. oropharynx clear without exudates. No tonsilar hypertrophy or erythema. Moist mucous membranes. No sinus tenderness. Uvula midline. No palatine shift. No tongue protrusion. No respiratory compromise. Mouth: Poor dentition. mild gingivitis. No obvious abscess or discharge noted. No facial swelling. + tenderness to tooth #2/15. NECK: Normal range of motion, supple without lymphadenopathy. No rigidity/meningismus. LUNGS: Breath sounds clear to auscultation bilaterally and equal. No wheezes rales or rhonchi. HEART: Regular rate and rhythm without murmurs, rubs, gallops. NEUROLOGICAL: Cranial nerves grossly intact. Normal speech, normal gait. Normal sensory, motor exams PSYCH: Normal mood, normal affect. SKIN: Warm, Dry, normal turgor, no rashes or lesions noted. - INFECTION CONTROL TRAVEL OUTSIDE OF THE [place] IN LAST 30 DAYS: No Course - Re-evaluation Re-evalutation: 07/28/19 17:17 Patient is an afebrile, well-hydrated, 34-year-old female who presents to the ED with dental pain, suspect nerve root etiology versus infection. Vitals are acceptable. PE is otherwise unremarkable. No I&D, labs, or imaging warranted at this time based on H&P. Viscous lidocaine dispensed today. I will send her home with a prescription for penicillin. Ramer dispense provided, reviewed with patient that she will not be getting any more narcotics from [facility] for this issue and this should get her until wednesday when she can see her dentist/family doctor. Low suspicion for any meningitis, sepsis, peritonsillar/pharyngeal abscess, respiratory compromise, Jersey's, temporal arteritis, or other emergent systemic condition at this time. Patient is aware this condition can change from initial presentation and she needs to monitor symptoms closely. Conservative measures otherwise for symptoms. Call to schedule an appointment with a dentist for further evaluation and management. Recheck with your PCM this week as well. Return to the ED with any worsening/concerning symptoms otherwise as reviewed in discharge. Patient is in agreement. - Vital Signs Vital signs: Temp Pulse Resp BP Pulse Ox 98.5 F 88 18 176/88 H 100 07/28/19 16:21 07/28/19 16:21 07/28/19 16:21 07/28/19 16:21 07/28/19 16:21 Discharge - Discharge Clinical Impression: Pain, dental Condition: Stable Disposition: HOME, SELF-CARE Instructions: Penicillin V K ([facility]), Toothache ([facility]) Additional Instructions: [place] and floss twice daily Maintain fluid intake Take antibiotics as directed Mouthwash, salt water gargles, peroxide rinse as needed Tylenol/ibuprofen as needed Recheck with PCM this week Call today/tomorrow and schedule an appointment with your dentist for further evaluation Return to the ED with any worsening symptoms and/or development of fever, headache, facial swelling, swelling of lips/tongue/throat, trouble swallowing, drooling, hoarseness, neck pain/stiffness, chest pain, palpitations, syncope, shortness of breath, trouble breathing, abdominal pain, n/v/d, numbness/tingling, or other worsening symptoms that are concerning to you. Prescriptions: Penicillin V Potassium [Penicillin Vk 250 mg Tablet] 500 mg PO BID #40 tablet Forms: Elevated Blood Pressure Referrals: GRACIELA RIVERA MD [Primary Care Provider] - Follow up as needed [facility] [Provider Group] - Follow up as needed
== END 2019-07-28 18:07 | disposition home or self-care (01) ==
LOC: ER 16:15
DX: K08.89 Other specified disorders of teeth and supporting structures (principal); K05.10 Chronic gingivitis, plaque induced; I10 Essential (primary) hypertension; E11.9 Type 2 diabetes mellitus without complications
CPT/HCPCS: J3490; A9270; 99282

== ENCOUNTER → 2019-09-14 | Outpatient (CLI) | payer MEDICARE, MEDICAID ==
[2019-09-14 16:02] LABS: HEMATOCRIT 33.2 % (36.0-47.0); HEMOGLOBIN 10.7 g/dL (12.0-15.5); MEAN CORPUSCULAR HEMOGLOBIN 29.3 pg (27.0-33.4); MEAN CORPUSCULAR HGB CONC 32.1 g/dL (32.0-36.0); MEAN CORPUSCULAR VOLUME 91 fl (80-97); PLATELET COUNT 148 10^3/uL (150-450); RED BLOOD COUNT 3.64 10^6/uL (3.72-5.28); RED CELL DISTRIBUTION WIDTH 13.9 % (11.5-14.0); WHITE BLOOD COUNT 3.3 10^3/uL (4.0-10.5)
[2019-09-14 16:04] LABS: APPEARANCE,URINE SLIGHTLY-CLOUDY; BILIRUBIN,URINE NEGATIVE (NEGATIVE); COLOR,URINE YELLOW; GLUCOSE, URINE NEGATIVE (NEGATIVE); KETONES,URINE NEGATIVE (NEGATIVE); LEUKOCYTE ESTERASE,URINE NEGATIVE (NEGATIVE); NITRITE,URINE NEGATIVE (NEGATIVE); PROTEIN,URINE 30 mg/dL (NEGATIVE); URINE SPECIFIC GRAVITY 1.017; UROBILINOGEN,URINE NEGATIVE mg/dL (<2.0)
[2019-09-14 16:24] LABS: AMYLASE 56 U/L (30-110); ANION GAP 10 (5-19); BLOOD UREA NITROGEN 13 mg/dL (7-20); CALCIUM 8.8 mg/dL (8.4-10.2); CARBON DIOXIDE 24 mmol/L (22-30); CHLORIDE 107 mmol/L (98-107); GLUCOSE 112 mg/dL (75-110); POTASSIUM 4.2 mmol/L (3.6-5.0)
[2019-09-14 16:31] LABS: ABSOLUTE LYMPHOCYTES# (MANUAL) 0.3 10^3/uL (0.5-4.7); ABSOLUTE MONOCYTES # (MANUAL) 0.1 10^3/uL (0.1-1.4); BAND NEUTROPHILS % (MANUAL) 2 % (3-5); BASOPHILS % (MANUAL) 0 % (0-2); EOSINOPHILS % (MANUAL) 0 % (0-6); LYMPHOCYTES % (MANUAL) 8 % (13-45); MONOCYTES % (MANUAL) 3 % (3-13); PLATELET COMMENT DECREASED; RBC MORPHOLOGY COMMENT NORMO-CYTIC/CHROMIC; SEGMENTED NEUTROPHILS % (MAN) 87 % (42-78); TOTAL CELLS COUNTED 100
[2019-09-14 19:59] LABS: C DIFFICILE GDH NEGATIVE (NEGATIVE)
== END ==
LOC: OD 14:40
PROVIDERS: ATTEND Surgery
DX: N18.9 Chronic kidney disease, unspecified (principal); R19.7 Diarrhea, unspecified; Z94.0 Kidney transplant status
CPT/HCPCS: 36415; 80048; 81001; 82150; 83690; 83735; 84100; 85025; 87324; 87449

== ENCOUNTER → 2019-12-05 | Outpatient (CLI) | payer MEDICARE, MEDICAID ==
[2019-12-05 11:30] LABS: ABSOLUTE LYMPHOCYTES (AUTO) 1.9 10^3/uL (0.5-4.7); ABSOLUTE MONOCYTES (AUTO) 0.9 10^3/uL (0.1-1.4); ABSOLUTE NEUT (AUTO) 3.9 10^3/uL (1.7-8.2); BASOPHILS % (AUTO) 0.4 % (0-2); EOSINOPHILS % (AUTO) 0.6 % (0-6); HEMATOCRIT 45.5 % (36.0-47.0); HEMOGLOBIN 15.1 g/dL (12.0-15.5); LYMPHOCYTES % (AUTO) 27.6 % (13-45); MEAN CORPUSCULAR HEMOGLOBIN 31.6 pg (27.0-33.4); MEAN CORPUSCULAR HGB CONC 33.1 g/dL (32.0-36.0); MEAN CORPUSCULAR VOLUME 96 fl (80-97); PLATELET COUNT 186 10^3/uL (150-450); RED BLOOD COUNT 4.77 10^6/uL (3.72-5.28); RED CELL DISTRIBUTION WIDTH 15.4 % (11.5-14.0); SEGMENTED NEUTROPHILS % (AUTO) 58.4 % (42-78); TOTAL CELLS COUNTED % (AUTO) 100 %; WHITE BLOOD COUNT 6.8 10^3/uL (4.0-10.5)
[2019-12-05 11:34] LABS: APPEARANCE,URINE CLEAR; BILIRUBIN,URINE NEGATIVE (NEGATIVE); COLOR,URINE STRAW; GLUCOSE, URINE NEGATIVE (NEGATIVE); KETONES,URINE NEGATIVE (NEGATIVE); LEUKOCYTE ESTERASE,URINE NEGATIVE (NEGATIVE); NITRITE,URINE NEGATIVE (NEGATIVE); PROTEIN,URINE NEGATIVE (NEGATIVE); URINE SPECIFIC GRAVITY 1.013; UROBILINOGEN,URINE NEGATIVE mg/dL (<2.0)
[2019-12-05 11:53] LABS: AMYLASE 67 U/L (30-110); ANION GAP 7 (5-19); BLOOD UREA NITROGEN 14 mg/dL (7-20); CALCIUM 9.3 mg/dL (8.4-10.2); CARBON DIOXIDE 27 mmol/L (22-30); CHLORIDE 107 mmol/L (98-107); GLUCOSE 79 mg/dL (75-110); PHOSPHORUS 3.9 mg/dL (2.5-4.5); POTASSIUM 4.5 mmol/L (3.6-5.0)
== END ==
LOC: OD 10:52
PROVIDERS: ATTEND Surgery
DX: N18.9 Chronic kidney disease, unspecified (principal); Z94.0 Kidney transplant status
CPT/HCPCS: 36415; 80048; 80197; 81001; 82150; 83690; 83735; 84100; 85025

== ENCOUNTER → 2020-01-09 | Outpatient (CLI) | payer MEDICARE, MEDICAID ==
[2020-01-09 10:07] LABS: ABSOLUTE LYMPHOCYTES (AUTO) 1.7 10^3/uL (0.5-4.7); ABSOLUTE MONOCYTES (AUTO) 0.7 10^3/uL (0.1-1.4); ABSOLUTE NEUT (AUTO) 5.5 10^3/uL (1.7-8.2); BASOPHILS % (AUTO) 0.4 % (0-2); EOSINOPHILS % (AUTO) 0.3 % (0-6); HEMATOCRIT 43.8 % (36.0-47.0); HEMOGLOBIN 14.6 g/dL (12.0-15.5); LYMPHOCYTES % (AUTO) 21.8 % (13-45); MEAN CORPUSCULAR HEMOGLOBIN 31.1 pg (27.0-33.4); MEAN CORPUSCULAR HGB CONC 33.3 g/dL (32.0-36.0); MEAN CORPUSCULAR VOLUME 93 fl (80-97); MONOCYTES % (AUTO) 8.8 % (3-13); PLATELET COUNT 221 10^3/uL (150-450); RED CELL DISTRIBUTION WIDTH 13.6 % (11.5-14.0); SEGMENTED NEUTROPHILS % (AUTO) 68.7 % (42-78); TOTAL CELLS COUNTED % (AUTO) 100 %
[2020-01-09 10:11] LABS: APPEARANCE,URINE CLEAR; BILIRUBIN,URINE NEGATIVE (NEGATIVE); COLOR,URINE YELLOW; GLUCOSE, URINE NEGATIVE (NEGATIVE); KETONES,URINE NEGATIVE (NEGATIVE); LEUKOCYTE ESTERASE,URINE NEGATIVE (NEGATIVE); NITRITE,URINE NEGATIVE (NEGATIVE); PROTEIN,URINE NEGATIVE (NEGATIVE); URINE SPECIFIC GRAVITY 1.014; UROBILINOGEN,URINE NEGATIVE mg/dL (<2.0)
[2020-01-09 10:34] LABS: AMYLASE 74 U/L (30-110); ANION GAP 7 (5-19); BLOOD UREA NITROGEN 19 mg/dL (7-20); CALCIUM 9.4 mg/dL (8.4-10.2); CARBON DIOXIDE 27 mmol/L (22-30); CHLORIDE 106 mmol/L (98-107); GLUCOSE 90 mg/dL (75-110); PHOSPHORUS 4.6 mg/dL (2.5-4.5); POTASSIUM 4.1 mmol/L (3.6-5.0)
== END ==
LOC: OD 09:29
PROVIDERS: ATTEND Surgery
DX: N18.9 Chronic kidney disease, unspecified (principal); Z94.0 Kidney transplant status
CPT/HCPCS: 36415; 80048; 80197; 81001; 82150; 83690; 83735; 84100; 85025

== ENCOUNTER → 2020-02-16 | Outpatient (CLI) | payer MEDICARE, MEDICAID ==
[2020-02-16 10:08] LABS: APPEARANCE,URINE CLEAR; BILIRUBIN,URINE NEGATIVE (NEGATIVE); COLOR,URINE YELLOW; GLUCOSE, URINE NEGATIVE (NEGATIVE); KETONES,URINE NEGATIVE (NEGATIVE); LEUKOCYTE ESTERASE,URINE SMALL (NEGATIVE); NITRITE,URINE NEGATIVE (NEGATIVE); PROTEIN,URINE NEGATIVE (NEGATIVE); URINE SPECIFIC GRAVITY 1.015; UROBILINOGEN,URINE NEGATIVE mg/dL (<2.0)
[2020-02-16 10:22] LABS: ABSOLUTE EOSINOPHILS # (AUTO) 0.1 10^3/uL (0.0-0.6); ABSOLUTE LYMPHOCYTES (AUTO) 1.7 10^3/uL (0.5-4.7); ABSOLUTE MONOCYTES (AUTO) 0.7 10^3/uL (0.1-1.4); ABSOLUTE NEUT (AUTO) 4.8 10^3/uL (1.7-8.2); BASOPHILS % (AUTO) 0.2 % (0-2); EOSINOPHILS % (AUTO) 0.8 % (0-6); HEMOGLOBIN 13.9 g/dL (12.0-15.5); LYMPHOCYTES % (AUTO) 23.3 % (13-45); MEAN CORPUSCULAR HEMOGLOBIN 31.7 pg (27.0-33.4); MEAN CORPUSCULAR VOLUME 93 fl (80-97); MONOCYTES % (AUTO) 9.9 % (3-13); PLATELET COUNT 188 10^3/uL (150-450); RED CELL DISTRIBUTION WIDTH 13.4 % (11.5-14.0); SEGMENTED NEUTROPHILS % (AUTO) 65.8 % (42-78); TOTAL CELLS COUNTED % (AUTO) 100 %; WHITE BLOOD COUNT 7.3 10^3/uL (4.0-10.5)
[2020-02-16 10:44] LABS: AMYLASE 52 U/L (30-110); ANION GAP 6 (5-19); BLOOD UREA NITROGEN 20 mg/dL (7-20); CALCIUM 9.2 mg/dL (8.4-10.2); CARBON DIOXIDE 28 mmol/L (22-30); CHLORIDE 105 mmol/L (98-107); GLUCOSE 86 mg/dL (75-110); PHOSPHORUS 3.4 mg/dL (2.5-4.5)
== END ==
LOC: OD 08:59
PROVIDERS: ATTEND Surgery
DX: N18.9 Chronic kidney disease, unspecified (principal); Z94.0 Kidney transplant status
CPT/HCPCS: 36415; 80048; 80197; 81001; 82150; 83690; 83735; 84100; 85025

== ENCOUNTER → 2020-02-27 | Outpatient (CLI) | payer MEDICARE, MEDICAID ==
[2020-02-27 10:22] LABS: APPEARANCE,URINE CLEAR; BILIRUBIN,URINE NEGATIVE (NEGATIVE); COLOR,URINE STRAW; GLUCOSE, URINE NEGATIVE (NEGATIVE); KETONES,URINE NEGATIVE (NEGATIVE); LEUKOCYTE ESTERASE,URINE NEGATIVE (NEGATIVE); NITRITE,URINE NEGATIVE (NEGATIVE); PROTEIN,URINE NEGATIVE (NEGATIVE); URINE SPECIFIC GRAVITY 1.009; UROBILINOGEN,URINE NEGATIVE mg/dL (<2.0)
[2020-02-27 11:29] LABS: ABSOLUTE LYMPHOCYTES (AUTO) 1.6 10^3/uL (0.5-4.7); ABSOLUTE MONOCYTES (AUTO) 0.9 10^3/uL (0.1-1.4); ABSOLUTE NEUT (AUTO) 5.9 10^3/uL (1.7-8.2); BASOPHILS % (AUTO) 0.4 % (0-2); EOSINOPHILS % (AUTO) 0.5 % (0-6); HEMATOCRIT 41.8 % (36.0-47.0); MEAN CORPUSCULAR HEMOGLOBIN 31.2 pg (27.0-33.4); MEAN CORPUSCULAR HGB CONC 33.5 g/dL (32.0-36.0); MEAN CORPUSCULAR VOLUME 93 fl (80-97); MONOCYTES % (AUTO) 10.5 % (3-13); PLATELET COUNT 193 10^3/uL (150-450); RED BLOOD COUNT 4.49 10^6/uL (3.72-5.28); RED CELL DISTRIBUTION WIDTH 13.5 % (11.5-14.0); SEGMENTED NEUTROPHILS % (AUTO) 69.6 % (42-78); TOTAL CELLS COUNTED % (AUTO) 100 %; WHITE BLOOD COUNT 8.4 10^3/uL (4.0-10.5)
[2020-02-27 11:32] LABS: AMYLASE 80 U/L (30-110); ANION GAP 6 (5-19); BLOOD UREA NITROGEN 20 mg/dL (7-20); CALCIUM 9.6 mg/dL (8.4-10.2); CARBON DIOXIDE 31 mmol/L (22-30); CHLORIDE 102 mmol/L (98-107); GLUCOSE 91 mg/dL (75-110); PHOSPHORUS 3.9 mg/dL (2.5-4.5); POTASSIUM 3.2 mmol/L (3.6-5.0)
== END ==
LOC: OD 09:43
PROVIDERS: ATTEND Surgery
DX: N18.9 Chronic kidney disease, unspecified (principal); Z94.0 Kidney transplant status
CPT/HCPCS: 36415; 80048; 80197; 81001; 82150; 83690; 83735; 84100; 85025

== ENCOUNTER → 2020-03-18 | Outpatient (CLI) | payer MEDICARE, MEDICAID ==
[2020-03-18 08:50] LABS: APPEARANCE,URINE CLEAR; BILIRUBIN,URINE NEGATIVE (NEGATIVE); COLOR,URINE STRAW; GLUCOSE, URINE NEGATIVE (NEGATIVE); KETONES,URINE NEGATIVE (NEGATIVE); LEUKOCYTE ESTERASE,URINE TRACE (NEGATIVE); NITRITE,URINE NEGATIVE (NEGATIVE); PROTEIN,URINE NEGATIVE (NEGATIVE); UROBILINOGEN,URINE NEGATIVE mg/dL (<2.0)
[2020-03-18 08:59] LABS: ABSOLUTE EOSINOPHILS # (AUTO) 0.1 10^3/uL (0.0-0.6); ABSOLUTE LYMPHOCYTES (AUTO) 1.9 10^3/uL (0.5-4.7); ABSOLUTE MONOCYTES (AUTO) 0.8 10^3/uL (0.1-1.4); ABSOLUTE NEUT (AUTO) 5.2 10^3/uL (1.7-8.2); BASOPHILS % (AUTO) 0.3 % (0-2); EOSINOPHILS % (AUTO) 0.9 % (0-6); HEMATOCRIT 36.2 % (36.0-47.0); HEMOGLOBIN 12.5 g/dL (12.0-15.5); LYMPHOCYTES % (AUTO) 23.9 % (13-45); MEAN CORPUSCULAR HEMOGLOBIN 32.7 pg (27.0-33.4); MEAN CORPUSCULAR HGB CONC 34.6 g/dL (32.0-36.0); MEAN CORPUSCULAR VOLUME 95 fl (80-97); MONOCYTES % (AUTO) 9.5 % (3-13); PLATELET COUNT 204 10^3/uL (150-450); RED BLOOD COUNT 3.83 10^6/uL (3.72-5.28); RED CELL DISTRIBUTION WIDTH 13.4 % (11.5-14.0); SEGMENTED NEUTROPHILS % (AUTO) 65.4 % (42-78); TOTAL CELLS COUNTED % (AUTO) 100 %; WHITE BLOOD COUNT 7.9 10^3/uL (4.0-10.5)
[2020-03-18 09:23] LABS: AMYLASE 69 U/L (30-110); ANION GAP 7 (5-19); BLOOD UREA NITROGEN 27 mg/dL (7-20); CALCIUM 9.4 mg/dL (8.4-10.2); CARBON DIOXIDE 30 mmol/L (22-30); CHLORIDE 102 mmol/L (98-107); GLUCOSE 124 mg/dL (75-110); PHOSPHORUS 3.8 mg/dL (2.5-4.5); POTASSIUM 3.6 mmol/L (3.6-5.0)
== END ==
LOC: OD 08:08
PROVIDERS: ATTEND Surgery
DX: Z94.0 Kidney transplant status (principal); N18.9 Chronic kidney disease, unspecified
CPT/HCPCS: 36415; 80048; 80197; 81001; 82150; 83690; 83735; 84100; 85025

== ENCOUNTER → 2020-08-27 | Outpatient (CLI) | payer MEDICARE, MEDICAID ==
[2020-08-27 11:02] LABS: ABSOLUTE LYMPHOCYTES (AUTO) 2.1 10^3/uL (0.5-4.7); ABSOLUTE MONOCYTES (AUTO) 0.7 10^3/uL (0.1-1.4); ABSOLUTE NEUT (AUTO) 4.4 10^3/uL (1.7-8.2); BASOPHILS % (AUTO) 0.2 % (0-2); EOSINOPHILS % (AUTO) 0.5 % (0-6); HEMATOCRIT 34.8 % (36.0-47.0); HEMOGLOBIN 11.7 g/dL (12.0-15.5); LYMPHOCYTES % (AUTO) 29.1 % (13-45); MEAN CORPUSCULAR HGB CONC 33.6 g/dL (32.0-36.0); MEAN CORPUSCULAR VOLUME 95 fl (80-97); MONOCYTES % (AUTO) 9.7 % (3-13); PLATELET COUNT 225 10^3/uL (150-450); RED BLOOD COUNT 3.66 10^6/uL (3.72-5.28); RED CELL DISTRIBUTION WIDTH 16.8 % (11.5-14.0); SEGMENTED NEUTROPHILS % (AUTO) 60.5 % (42-78); TOTAL CELLS COUNTED % (AUTO) 100 %; WHITE BLOOD COUNT 7.3 10^3/uL (4.0-10.5)
[2020-08-27 11:20] LABS: APPEARANCE,URINE CLEAR; BILIRUBIN,URINE NEGATIVE (NEGATIVE); COLOR,URINE STRAW; GLUCOSE, URINE NEGATIVE (NEGATIVE); KETONES,URINE NEGATIVE (NEGATIVE); LEUKOCYTE ESTERASE,URINE SMALL (NEGATIVE); NITRITE,URINE NEGATIVE (NEGATIVE); PROTEIN,URINE NEGATIVE (NEGATIVE); UROBILINOGEN,URINE NEGATIVE mg/dL (<2.0)
[2020-08-27 11:39] LABS: ALBUMIN 3.8 g/dL (3.5-5.0); ALKALINE PHOSPHATASE 116 U/L (38-126); ANION GAP 8 (5-19); ASPARTATE AMINO TRANSFERASE 22 U/L (14-36); BILIRUBIN,DIRECT 0.1 mg/dL (0.0-0.4); BILIRUBIN,TOTAL 0.4 mg/dL (0.2-1.3); BLOOD UREA NITROGEN 21 mg/dL (7-20); CALCIUM 9.5 mg/dL (8.4-10.2); CARBON DIOXIDE 31 mmol/L (22-30); CHLORIDE 102 mmol/L (98-107); GLUCOSE 94 mg/dL (75-110); PHOSPHORUS 3.3 mg/dL (2.5-4.5); POTASSIUM 3.6 mmol/L (3.6-5.0); TOTAL PROTEIN 7.5 g/dL (6.3-8.2)
[2020-08-27 11:55] LABS: UR PRO/CREAT RATIO RESULT 0.2 mg/mg (0.0-0.2); URINE CREATININE 67.2 mg/dL (16-327); URINE PROTEIN 13.3 mg/dL (<12)
== END ==
LOC: OD 09:59
PROVIDERS: ATTEND Surgery
DX: N18.9 Chronic kidney disease, unspecified (principal); Z94.0 Kidney transplant status
CPT/HCPCS: 36415; 80053; 80197; 81001; 82570; 83735; 84100; 84156; 85025

== ENCOUNTER → 2020-10-01 | Outpatient (CLI) | payer MEDICARE, MEDICAID ==
[2020-10-01 11:30] LABS: ABSOLUTE LYMPHOCYTES (AUTO) 1.9 10^3/uL (0.5-4.7); ABSOLUTE MONOCYTES (AUTO) 0.8 10^3/uL (0.1-1.4); ABSOLUTE NEUT (AUTO) 6.3 10^3/uL (1.7-8.2); BASOPHILS % (AUTO) 0.3 % (0-2); EOSINOPHILS % (AUTO) 0.4 % (0-6); HEMATOCRIT 41.7 % (36.0-47.0); HEMOGLOBIN 13.6 g/dL (12.0-15.5); LYMPHOCYTES % (AUTO) 20.6 % (13-45); MEAN CORPUSCULAR HEMOGLOBIN 28.3 pg (27.0-33.4); MEAN CORPUSCULAR HGB CONC 32.6 g/dL (32.0-36.0); MEAN CORPUSCULAR VOLUME 87 fl (80-97); MONOCYTES % (AUTO) 8.9 % (3-13); PLATELET COUNT 225 10^3/uL (150-450); RED BLOOD COUNT 4.79 10^6/uL (3.72-5.28); RED CELL DISTRIBUTION WIDTH 16.7 % (11.5-14.0); SEGMENTED NEUTROPHILS % (AUTO) 69.8 % (42-78); TOTAL CELLS COUNTED % (AUTO) 100 %
[2020-10-01 11:51] LABS: ALKALINE PHOSPHATASE 141 U/L (38-126); ANION GAP 7 (5-19); ASPARTATE AMINO TRANSFERASE 23 U/L (14-36); BILIRUBIN,DIRECT 0.2 mg/dL (0.0-0.4); BILIRUBIN,TOTAL 0.5 mg/dL (0.2-1.3); BLOOD UREA NITROGEN 30 mg/dL (7-20); CALCIUM 9.5 mg/dL (8.4-10.2); CARBON DIOXIDE 30 mmol/L (22-30); CHLORIDE 101 mmol/L (98-107); GLUCOSE 95 mg/dL (75-110); POTASSIUM 3.7 mmol/L (3.6-5.0); TOTAL PROTEIN 7.6 g/dL (6.3-8.2)
[2020-10-01 11:54] LABS: APPEARANCE,URINE CLOUDY; BILIRUBIN,URINE NEGATIVE (NEGATIVE); COLOR,URINE YELLOW; GLUCOSE, URINE NEGATIVE (NEGATIVE); KETONES,URINE NEGATIVE (NEGATIVE); LEUKOCYTE ESTERASE,URINE LARGE (NEGATIVE); NITRITE,URINE NEGATIVE (NEGATIVE); PROTEIN,URINE NEGATIVE (NEGATIVE); URINE SPECIFIC GRAVITY 1.012; UROBILINOGEN,URINE NEGATIVE mg/dL (<2.0)
[2020-10-01 12:16] LABS: UR PRO/CREAT RATIO RESULT 0.1 mg/mg (0.0-0.2); URINE CREATININE 111.6 mg/dL (16-327); URINE PROTEIN 11.5 mg/dL (<12)
== END ==
LOC: OD 10:51
PROVIDERS: ATTEND Surgery
DX: N18.9 Chronic kidney disease, unspecified (principal); Z94.83 Pancreas transplant status; Z94.0 Kidney transplant status
CPT/HCPCS: 36415; 80053; 80197; 81001; 82150; 82570; 83690; 83735; 84100; 84156; 85025